=== PATIENT | female | born 1930 | race Hispanic/Latino ===

== ENCOUNTER 2017-07-29 14:39 | Inpatient (IN) | payer OTHER ==
[2017-07-29 22:08] VITALS: BMI 26.0
[2017-07-30 01:42] VITALS: RESP 20
[2017-07-30] MEDS ORDERED: Tuberculin 5 Units/0.1 ml Inj ID ONE (02:55)
[2017-07-30] MEDS: Insulin Regular 100 units/ml SC SCH ×4 (07:42→23:00)
[2017-07-30] MEDS: Lidocaine 5% Patch TD SCH (08:51)
[2017-07-30] MEDS: Enoxaparin 40 mg Syringe SC SCH (08:52)
--- NOTE | 2017-07-30 09:57 | CP.PCM.HP ---
History of Present Illness - History of Present Illness History of Present Illness: Patient seen and examined with attending. This is an 86 y/o female with hx of DM 2 and HTN was admitted for near syncope, found to have UTI and treated with IV ancef. She is doing well. UTI has resolved. Now being admitted to TCU for further rehabilitation. Patient has hx of diabetes, has hyperglycemia. Denies polyuria, polydipsia, polyphagia. No dysuria. Present on Admission - Present on Admission Any Indicators Present on Admission: No Past Patient History - Tetanus Immunizations Tetanus Immunization: Unknown - Past Medical History & Family History Past Medical History?: Yes - Past Social History Smoking Status: Never Smoked - CARDIAC Hx Cardiac Disorders: Yes Hx Hypercholesterolemia: Yes Hx Hypertension: Yes - PULMONARY Hx Respiratory Disorders: Yes Hx Pneumonia: Yes - NEUROLOGICAL Hx Neurological Disorder: No - HEENT Other/Comment: HARD OF HEARING - RENAL Hx Chronic Kidney Disease: No - ENDOCRINE/METABOLIC Hx Diabetes Mellitus Type 2: Yes - HEMATOLOGICAL/ONCOLOGICAL Hx Blood Disorders: No - INTEGUMENTARY Hx Dermatological Problems: No - MUSCULOSKELETAL/RHEUMATOLOGICAL Hx Musculoskeletal Disorders: Yes Hx Falls: Yes Hx Osteoarthritis: Yes - GASTROINTESTINAL Hx Gastrointestinal Disorders: No - GENITOURINARY/GYNECOLOGICAL Hx Genitourinary Disorders: Yes - PSYCHIATRIC Hx Psychophysiologic Disorder: No Hx Substance Use: No - SURGICAL HISTORY Hx Surgeries: Yes Hx Cholecystectomy: Yes ([place]) - ANESTHESIA Hx Anesthesia: Yes Hx Anesthesia Reactions: No Meds Allergies/Adverse Reactions: Allergies Allergy/AdvReac Type Severity Reaction Status Date / Time No Known Allergies Allergy Unverified 04/30/14 20:00 Physical Exam - Constitutional Appears: No Acute Distress - Head Exam Head Exam: ATRAUMATIC, NORMAL INSPECTION, NORMOCEPHALIC - ENT Exam ENT Exam: Mucous Membranes Moist - Respiratory Exam Respiratory Exam: NORMAL BREATHING PATTERN - Cardiovascular Exam Cardiovascular Exam: REGULAR RHYTHM - Extremities Exam Extremities exam: Positive for: normal inspection. Negative for: pedal edema, tenderness - Neurological Exam Neurological exam: Alert, CN II-XII Intact - Psychiatric Exam Psychiatric exam: Normal Affect, Normal Mood - Skin Skin Exam: Normal Color Results - Vital Signs Recent Vital Signs: Last Vital Signs Temp 97.3 F L 07/30/17 08:13 Pulse 75 07/30/17 08:52 Resp 20 07/30/17 08:13 BP 131/60 07/30/17 08:52 Pulse Ox 99 07/30/17 08:13 - Labs Labs: Laboratory Results - last 24 hr 07/30/17 06:35 POC Glucose (mg/dL) 214 H Assessment & Plan - Assessment and Plan (Free Text) Assessment: 86 year old female with hx of DM, HTN admitted to TCU for rehabilitation. #NIDDM #HTN #chronic back pain #dvt ppx -home medications for diabetes resumed -still hyperglycemic, will add glipizide 2.5mg -on insulin sliding scale -HTN is controlled -lovenox case d/w Dr. Oviedo
[2017-07-30] MEDS: Multivitamin With Minerals Tab PO SCH (12:11)
--- NOTE | 2017-07-30 15:34 | CP.PCM.CON ---
History of Present Illness - History of Present Illness History of Present Illness: Dr Brewer PMR consultation on Samantha Ortiz, admitted with syncope and diagnosed with UTI and put on IV ABX stable now and here at [facility] for LC. Review of Systems - Constitutional Constitutional: absent: Chills - EENT Eyes: absent: Change in Vision Ears: Decreased Hearing. absent: Ear Discharge, Ear Pain, Dizziness Nose/Mouth/Throat: absent: Nasal Congestion - Cardiovascular Cardiovascular: absent: Chest Pain - Respiratory Respiratory: absent: Cough, Dyspnea - Gastrointestinal Gastrointestinal: absent: Constipation Past Patient History - Tetanus Immunizations Tetanus Immunization: Unknown - Past Medical History & Family History Past Medical History?: Yes - Past Social History Smoking Status: Never Smoked Alcohol: None Drugs: Denies Home Situation {Lives}: Alone - CARDIAC Hx Cardiac Disorders: Yes Hx Hypercholesterolemia: Yes Hx Hypertension: Yes - PULMONARY Hx Respiratory Disorders: Yes Hx Pneumonia: Yes - NEUROLOGICAL Hx Neurological Disorder: No - HEENT Other/Comment: HARD OF HEARING - RENAL Hx Chronic Kidney Disease: No - ENDOCRINE/METABOLIC Hx Diabetes Mellitus Type 2: Yes - HEMATOLOGICAL/ONCOLOGICAL Hx Blood Disorders: No - INTEGUMENTARY Hx Dermatological Problems: No - MUSCULOSKELETAL/RHEUMATOLOGICAL Hx Musculoskeletal Disorders: Yes Hx Falls: Yes Hx Osteoarthritis: Yes - GASTROINTESTINAL Hx Gastrointestinal Disorders: No - GENITOURINARY/GYNECOLOGICAL Hx Genitourinary Disorders: Yes - PSYCHIATRIC Hx Psychophysiologic Disorder: No Hx Substance Use: No - SURGICAL HISTORY Hx Surgeries: Yes Hx Cholecystectomy: Yes ([place]) - ANESTHESIA Hx Anesthesia: Yes Hx Anesthesia Reactions: No Meds Allergies/Adverse Reactions: Allergies Allergy/AdvReac Type Severity Reaction Status Date / Time No Known Allergies Allergy Unverified 04/30/14 20:00 - Medications Medications: Current Medications Atorvastatin Calcium (Lipitor) 10 mg PO DAILY [facility] Last Admin: 07/30/17 08:52 Dose: 10 mg Enoxaparin Sodium (Lovenox) 40 mg SC DAILY [facility] PRN Reason: Protocol Last Admin: 07/30/17 08:52 Dose: 40 mg Ergocalciferol (Drisdol 50,000 Intl Units Cap) 1 cap PO QWK [facility] Fluticasone Propionate (Flonase) 2 spr OLIVIER DAILY PRN PRN Reason: Allergy symptoms Glipizide (Glucotrol) 2.5 mg PO ACB [facility] Last Admin: 07/30/17 12:10 Dose: 2.5 mg Insulin Human Regular (Humulin R) 0 units SC ACCU-CHECK [facility] PRN Reason: Protocol Last Admin: 07/30/17 07:42 Dose: 2 u Lidocaine (Lidoderm) 1 ea TD DAILY [facility] Last Admin: 07/30/17 08:51 Dose: 1 ea Losartan Potassium (Cozaar) 25 mg PO DAILY [facility] Last Admin: 07/30/17 08:52 Dose: 25 mg Meclizine HCl (Antivert) 25 mg PO TID PRN PRN Reason: Dizziness Multivitamins/Minerals (Therapeutic-M Tab) 1 tab PO DAILY [facility] Last Admin: 07/30/17 12:11 Dose: 1 tab Pioglitazone HCl (Actos) 15 mg PO DAILY [facility] Last Admin: 07/30/17 08:51 Dose: 15 mg Pregabalin (Lyrica) 50 mg PO Q12@0900,2100 [facility] Last Admin: 07/30/17 08:54 Dose: 50 mg Sitagliptin Phosphate (Januvia) 100 mg PO DAILY [facility] Last Admin: 07/30/17 08:51 Dose: 100 mg Sucralfate (Carafate Tab) 1 gm PO TID [facility] Last Admin: 07/30/17 14:04 Dose: 1 gm Tramadol HCl (Ultram) 50 mg PO BID PRN PRN Reason: Pain, severe (8-10) Last Admin: 07/30/17 10:29 Dose: 50 mg Zolpidem Tartrate (Ambien) 5 mg PO [facility] Physical Exam - Constitutional Appears: Non-toxic, No Acute Distress - Head Exam Head Exam: ATRAUMATIC, NORMAL INSPECTION, NORMOCEPHALIC - Eye Exam Eye Exam: EOMI - ENT Exam ENT Exam: Mucous Membranes Moist - Respiratory Exam Respiratory Exam: NORMAL BREATHING PATTERN - Cardiovascular Exam Cardiovascular Exam: REGULAR RHYTHM - GI/Abdominal Exam GI & Abdominal Exam: absent: Distended, Firm - Extremities Exam Extremities exam: Negative for: calf tenderness, pedal edema Results - Vital Signs Recent Vital Signs: Last Vital Signs Temp 97.3 F L 07/30/17 08:13 Pulse 75 07/30/17 08:52 Resp 20 07/30/17 08:13 BP 131/60 07/30/17 08:52 Pulse Ox 99 07/30/17 08:13 - Labs Labs: Laboratory Results - last 24 hr 07/30/17 07/30/17 06:35 10:59 POC Glucose (mg/dL) 214 H 350 H Assessment & Plan - Assessment and Plan (Free Text) Assessment: + deconditioned no pain at this point no sob no diarrhea continue current care PT/OT to help with functional independence and facilitate a safe and appropriate d/c home
[2017-07-30] MEDS: Simethicone 80 mg Chewtab PO PRN (22:15)
[2017-07-31] MEDS: Insulin Regular 100 units/ml SC SCH ×4 (07:11→22:47)
[2017-07-31] MEDS: Ergocalciferol 50,000 Intl Units Cap PO SCH (09:08)
[2017-07-31] MEDS: Multivitamin With Minerals Tab PO SCH (09:08)
[2017-07-31] MEDS: Lidocaine 5% Patch TD SCH (09:10)
[2017-07-31] MEDS: Enoxaparin 40 mg Syringe SC SCH (09:15)
[2017-07-31] MEDS: Simethicone 80 mg Chewtab PO PRN (09:18)
[2017-08-01] MEDS: Insulin Regular 100 units/ml SC SCH ×3 (07:27→16:55)
[2017-08-01] MEDS: Lidocaine 5% Patch TD SCH (08:48)
[2017-08-01] MEDS: Multivitamin With Minerals Tab PO SCH (08:49)
[2017-08-01] MEDS: Ergocalciferol 50,000 Intl Units Cap PO SCH (08:49)
[2017-08-01] MEDS: Enoxaparin 40 mg Syringe SC SCH (08:50)
--- NOTE | 2017-08-01 14:14 | CP.PCM.PN ---
Subjective - Date & Time of Evaluation Date of Evaluation: 07/31/17 Time of Evaluation: 10:20 - Subjective Subjective: Noted to have elevated FBS Started on low dose glipizide and Pioglitazone. Objective - Vital Signs/Intake and Output Vital Signs (last 24 hours): Temp Pulse Resp BP Pulse Ox 97.3 F L 73 20 116/62 98 08/01/17 08:18 08/01/17 08:50 08/01/17 08:18 08/01/17 08:50 08/01/17 08:18 - Medications Medications: Current Medications Atorvastatin Calcium (Lipitor) 10 mg PO DAILY [facility] Last Admin: 08/01/17 08:48 Dose: 10 mg Enoxaparin Sodium (Lovenox) 40 mg SC DAILY [facility] PRN Reason: Protocol Last Admin: 08/01/17 08:50 Dose: 40 mg Ergocalciferol (Drisdol 50,000 Intl Units Cap) 1 cap PO QWK [facility] Last Admin: 08/01/17 08:49 Dose: 1 cap Fluticasone Propionate (Flonase) 2 spr OLIVIER DAILY PRN PRN Reason: Allergy symptoms Glipizide (Glucotrol Xl) 5 mg PO BRK [facility] Insulin Human Regular (Humulin R) 0 units SC ACCU-CHECK [facility] PRN Reason: Protocol Last Admin: 08/01/17 11:41 Dose: 4 u Lidocaine (Lidoderm) 1 ea TD DAILY [facility] Last Admin: 08/01/17 08:48 Dose: 1 ea Losartan Potassium (Cozaar) 25 mg PO DAILY [facility] Last Admin: 08/01/17 08:50 Dose: 25 mg Meclizine HCl (Antivert) 25 mg PO TID PRN PRN Reason: Dizziness Multivitamins/Minerals (Therapeutic-M Tab) 1 tab PO DAILY [facility] Last Admin: 08/01/17 08:49 Dose: 1 tab Pioglitazone HCl (Actos) 30 mg PO DAILY [facility] Pregabalin (Lyrica) 50 mg PO Q12@0900,2100 [facility] Last Admin: 08/01/17 08:49 Dose: 50 mg Simethicone (Mylicon Chew Tab) 80 mg PO TID PRN PRN Reason: Flatulence Last Admin: 07/31/17 09:18 Dose: 80 mg Sitagliptin Phosphate (Januvia) 100 mg PO DAILY [facility] Last Admin: 08/01/17 08:49 Dose: 100 mg Sucralfate (Carafate Tab) 1 gm PO TID [facility] Last Admin: 08/01/17 12:36 Dose: 1 gm Tramadol HCl (Ultram) 50 mg PO BID PRN PRN Reason: Pain, severe (8-10) Last Admin: 07/31/17 22:39 Dose: 50 mg Zolpidem Tartrate (Ambien) 5 mg PO HS [facility] Last Admin: 07/31/17 21:26 Dose: Not Given
--- NOTE | 2017-08-01 14:16 | CP.PCM.PN ---
Subjective - Date & Time of Evaluation Date of Evaluation: 08/01/17 Time of Evaluation: 14:14 - Subjective Subjective: Patient is doing a lot better Still with elevated FBS Objective - Vital Signs/Intake and Output Vital Signs (last 24 hours): Temp Pulse Resp BP Pulse Ox 97.3 F L 73 20 116/62 98 08/01/17 08:18 08/01/17 08:50 08/01/17 08:18 08/01/17 08:50 08/01/17 08:18 - Medications Medications: Current Medications Atorvastatin Calcium (Lipitor) 10 mg PO DAILY [facility] Last Admin: 08/01/17 08:48 Dose: 10 mg Enoxaparin Sodium (Lovenox) 40 mg SC DAILY [facility] PRN Reason: Protocol Last Admin: 08/01/17 08:50 Dose: 40 mg Ergocalciferol (Drisdol 50,000 Intl Units Cap) 1 cap PO QWK [facility] Last Admin: 08/01/17 08:49 Dose: 1 cap Fluticasone Propionate (Flonase) 2 spr OLIVIER DAILY PRN PRN Reason: Allergy symptoms Glipizide (Glucotrol Xl) 5 mg PO BRK [facility] Insulin Human Regular (Humulin R) 0 units SC ACCU-CHECK [facility] PRN Reason: Protocol Last Admin: 08/01/17 11:41 Dose: 4 u Lidocaine (Lidoderm) 1 ea TD DAILY [facility] Last Admin: 08/01/17 08:48 Dose: 1 ea Losartan Potassium (Cozaar) 25 mg PO DAILY [facility] Last Admin: 08/01/17 08:50 Dose: 25 mg Meclizine HCl (Antivert) 25 mg PO TID PRN PRN Reason: Dizziness Multivitamins/Minerals (Therapeutic-M Tab) 1 tab PO DAILY [facility] Last Admin: 08/01/17 08:49 Dose: 1 tab Pioglitazone HCl (Actos) 30 mg PO DAILY [facility] Pregabalin (Lyrica) 50 mg PO Q12@0900,2100 [facility] Last Admin: 08/01/17 08:49 Dose: 50 mg Simethicone (Mylicon Chew Tab) 80 mg PO TID PRN PRN Reason: Flatulence Last Admin: 07/31/17 09:18 Dose: 80 mg Sitagliptin Phosphate (Januvia) 100 mg PO DAILY [facility] Last Admin: 08/01/17 08:49 Dose: 100 mg Sucralfate (Carafate Tab) 1 gm PO TID [facility] Last Admin: 08/01/17 12:36 Dose: 1 gm Tramadol HCl (Ultram) 50 mg PO BID PRN PRN Reason: Pain, severe (8-10) Last Admin: 07/31/17 22:39 Dose: 50 mg Zolpidem Tartrate (Ambien) 5 mg PO HS [facility] Last Admin: 07/31/17 21:26 Dose: Not Given
[2017-08-01] MEDS: GlipiZIDE 5 mg SR Tab PO SCH (16:53)
[2017-08-01] MEDS: Pantoprazole 40 mg EC Tab PO SCH (16:58)
[2017-08-02] MEDS: Insulin Regular 100 units/ml SC SCH ×5 (03:39→22:13)
[2017-08-02] MEDS: Enoxaparin 40 mg Syringe SC SCH (08:52)
[2017-08-02] MEDS: Pantoprazole 40 mg EC Tab PO SCH (08:53)
[2017-08-02] MEDS: Ergocalciferol 50,000 Intl Units Cap PO SCH (08:53)
[2017-08-02] MEDS: Multivitamin With Minerals Tab PO SCH (08:53)
[2017-08-02] MEDS: GlipiZIDE 5 mg SR Tab PO SCH (08:53)
[2017-08-02] MEDS: Lidocaine 5% Patch TD SCH (08:54)
[2017-08-02] MEDS ORDERED: GlipiZIDE 5 mg SR Tab PO SCH (17:00)
[2017-08-02] MEDS: Insulin Detemir 100 Units/ml Inj SC SCH (22:03)
[2017-08-03] MEDS: Insulin Regular 100 units/ml SC SCH ×4 (06:36→22:02)
[2017-08-03] MEDS: Lidocaine 5% Patch TD SCH (08:28)
[2017-08-03] MEDS: Pantoprazole 40 mg EC Tab PO SCH (08:29)
[2017-08-03] MEDS: Multivitamin With Minerals Tab PO SCH (08:29)
[2017-08-03] MEDS: GlipiZIDE 5 mg SR Tab PO SCH (08:29)
--- NOTE | 2017-08-03 10:11 | CP.PCM.PN ---
Subjective - Date & Time of Evaluation Date of Evaluation: 08/02/17 Time of Evaluation: 10:00 - Subjective Subjective: Patient continues to complain about pain in the left upper quadrant Has no chest pain or SOB Has normal intake and b,m Participates well with therapy. Objective - Vital Signs/Intake and Output Vital Signs (last 24 hours): Temp Pulse Resp BP Pulse Ox 97.3 F L 68 20 135/55 L 100 08/03/17 08:23 08/03/17 08:28 08/03/17 08:23 08/03/17 08:28 08/03/17 08:23 - Medications Medications: Current Medications Atorvastatin Calcium (Lipitor) 10 mg PO HS [facility] Last Admin: 08/02/17 22:12 Dose: 10 mg Ergocalciferol (Drisdol 50,000 Intl Units Cap) 1 cap PO QWK [facility] Last Admin: 08/02/17 08:53 Dose: 1 cap Fluticasone Propionate (Flonase) 2 spr OLIVIER DAILY PRN PRN Reason: Allergy symptoms Glipizide (Glucotrol Xl) 5 mg PO BRK [facility] Last Admin: 08/03/17 08:29 Dose: 5 mg Insulin Detemir (Levemir) 10 units SC HS [facility] Last Admin: 08/02/17 22:03 Dose: 10 units Insulin Human Regular (Humulin R) 0 units SC ACCU-CHECK [facility] PRN Reason: Protocol Last Admin: 08/03/17 06:36 Dose: Not Given Lidocaine (Lidoderm) 1 ea TD DAILY [facility] Last Admin: 08/03/17 08:28 Dose: 1 ea Losartan Potassium (Cozaar) 25 mg PO DAILY [facility] Last Admin: 08/03/17 08:28 Dose: 25 mg Meclizine HCl (Antivert) 25 mg PO TID PRN PRN Reason: Dizziness Multivitamins/Minerals (Therapeutic-M Tab) 1 tab PO DAILY [facility] Last Admin: 08/03/17 08:29 Dose: 1 tab Pantoprazole Sodium (Protonix Ec Tab) 40 mg PO DAILY [facility] Last Admin: 08/03/17 08:29 Dose: 40 mg Pioglitazone HCl (Actos) 30 mg PO DAILY [facility] Last Admin: 08/03/17 08:28 Dose: 30 mg Simethicone (Mylicon Chew Tab) 80 mg PO TID PRN PRN Reason: Flatulence Last Admin: 07/31/17 09:18 Dose: 80 mg Sitagliptin Phosphate (Januvia) 100 mg PO DAILY [facility] Last Admin: 08/03/17 08:29 Dose: 100 mg Sucralfate (Carafate Tab) 1 gm PO TID [facility] Last Admin: 08/03/17 08:28 Dose: 1 gm Tramadol HCl (Ultram) 50 mg PO Q4 PRN PRN Reason: Pain, moderate (4-7) Zolpidem Tartrate (Ambien) 5 mg PO HS [facility] Last Admin: 08/02/17 22:11 Dose: 5 mg - Head Exam Head Exam: NORMAL INSPECTION - Eye Exam Eye Exam: Normal appearance - ENT Exam ENT Exam: Mucous Membranes Moist - Cardiovascular Exam Cardiovascular Exam: REGULAR RHYTHM - GI/Abdominal Exam GI & Abdominal Exam: Normal Bowel Sounds - Neurological Exam Neurological Exam: Awake, Oriented x3 Assessment and Plan (1) Left upper quadrant abdominal pain of unknown etiology Status: Acute (2) Episode of syncope Status: Acute (3) UTI (urinary tract infection) Status: Acute (4) Uncontrolled diabetes mellitus type 2 without complications Status: Acute (5) Osteoarthritis of both knees Status: Chronic - Assessment and Plan (Free Text) Plan: contmeds cont tx cont PT
[2017-08-03] MEDS: Insulin Detemir 100 Units/ml Inj SC SCH (21:32)
[2017-08-04] MEDS: Insulin Regular 100 units/ml SC SCH ×4 (06:25→22:06)
[2017-08-04] MEDS: Lidocaine 5% Patch TD SCH (08:37)
[2017-08-04] MEDS: GlipiZIDE 5 mg SR Tab PO SCH (08:37)
[2017-08-04] MEDS: Pantoprazole 40 mg EC Tab PO SCH (08:37)
[2017-08-04] MEDS: Multivitamin With Minerals Tab PO SCH (08:37)
[2017-08-04] MEDS: Insulin Detemir 100 Units/ml Inj SC SCH (21:40)
[2017-08-05] MEDS: Insulin Regular 100 units/ml SC SCH ×4 (06:46→22:09)
[2017-08-05] MEDS: GlipiZIDE 5 mg SR Tab PO SCH (08:58)
[2017-08-05] MEDS: Lidocaine 5% Patch TD SCH (08:59)
[2017-08-05] MEDS: Multivitamin With Minerals Tab PO SCH (08:59)
[2017-08-05] MEDS: Pantoprazole 40 mg EC Tab PO SCH (09:00)
[2017-08-05 16:39] VITALS: TEMP 97.5
[2017-08-05] MEDS: Insulin Detemir 100 Units/ml Inj SC SCH (21:29)
[2017-08-06] MEDS: Insulin Regular 100 units/ml SC SCH (07:06)
[2017-08-06 08:09] VITALS: BP 127/57; PULSE 72; O2SAT 95
[2017-08-06] MEDS: Lidocaine 5% Patch TD SCH (08:57)
[2017-08-06] MEDS: Multivitamin With Minerals Tab PO SCH (08:57)
[2017-08-06] MEDS: GlipiZIDE 5 mg SR Tab PO SCH (08:57)
[2017-08-06] MEDS: Pantoprazole 40 mg EC Tab PO SCH (08:58)
--- NOTE | 2017-08-06 12:47 | CP.PCM.DIS ---
Provider - Provider Date of Admission: 07/29/17 22:09 Attending physician: Krunal Oviedo MD Hospital Course - Lab Results Lab Results: Most Recent Lab Values POC Glucose (mg/dL) 148 mg/dL (65-110) H 08/06/17 07:04 Discharge Exam - Head Exam Head Exam: NORMAL INSPECTION Discharge Plan - Follow Up Plan Condition: GOOD Disposition: HOME/ ROUTINE Instructions: Urinary Tract Infection in Women (DC), Syncope (DC), Fall Prevention (GEN) Referrals: Krunal Oviedo MD [Staff Provider] -
== END 2017-08-06 11:00 | disposition home or self-care (01) | DRG 639 ==
LOC: H.TCU 22:09
PROVIDERS: ADMIT Family Medicine; ATTEND Family Medicine
PROC: F08Z4FZ Home Management Treatment using Assistive, Adaptive, Supportive or Protective Equipment (ICD-10-PCS; principal; 2017-07-30)
PROC: F07M6FZ Therapeutic Exercise Treatment of Musculoskeletal System - Whole Body using Assistive, Adaptive, Supportive or Protective Equipment (ICD-10-PCS; 2017-07-30)
DX: E11.65 Type 2 diabetes mellitus with hyperglycemia (principal); I10 Essential (primary) hypertension; E78.00 Pure hypercholesterolemia, unspecified; G89.29 Other chronic pain; M54.9 Dorsalgia, unspecified; H91.90 Unspecified hearing loss, unspecified ear; M17.0 Bilateral primary osteoarthritis of knee; Z79.84 Long term (current) use of oral hypoglycemic drugs; Z87.01 Personal history of pneumonia (recurrent); Z90.49 Acquired absence of other specified parts of digestive tract; M19.90 Unspecified osteoarthritis, unspecified site; R10.12 Left upper quadrant pain; R55 Syncope and collapse

== ENCOUNTER 2018-02-11 22:14 | Emergency (ER) | payer MEDICARE, OTHER ==
[2018-02-11 22:14] VITALS: BMI 26.0
[2018-02-11 22:17] VITALS: O2SAT 98
[2018-02-11 22:23] VITALS: BP 178/86; PULSE 83; RESP 18; TEMP 98
[2018-02-11] MEDS ORDERED: Sodium Chloride 0.9% 1,000 ML IV STA ×2 (22:33→22:35)
--- NOTE | 2018-02-11 23:01 | ED PDOC ---
HPI: Back Time Seen by Provider: 02/11/18 22:26 Chief Complaint (Nursing): Back Pain History Per: Patient History/Exam Limitations: no limitations Onset/Duration Of Symptoms: Other (x since this morning) Current Symptoms Are (Timing): Still Present Additional Complaint(s): 87-year-old female, with a past medical history of diabetes and hypertension, presents to ED complaining since this morning, she has had right- sided flank pain consistent with previous UTIs she had. (+) chills, (-) fever, ( -) nausea, (-) vomitin, (-) diarrhea. PMD: [place] Past Medical History Reviewed: Historical Data, Nursing Documentation, Vital Signs Vital Signs: Last Vital Signs Temp 98 F 02/11/18 22:20 Pulse 83 02/11/18 22:20 Resp 18 02/11/18 22:20 BP 178/86 H 02/11/18 22:20 Pulse Ox 98 02/11/18 22:20 - Medical History PMH: Diabetes, HTN, Hypercholesterolemia, Pneumonia Denies: Chronic Kidney Disease - Surgical History Surgical History: Cholecystectomy (Lap [place]) - Family History Family History: States: Unknown Family Hx - Social History Current smoker - smoking cessation education provided: No Alcohol: None Drugs: Denies - Home Medications Home Medications: Ambulatory Orders Medication Instructions Recorded Atorvastatin [Lipitor] 10 mg PO DAILY 07/23/17 Mv,Min10/Folic Acid/D3/Ala/Lut 1 tab PO DAILY 07/23/17 [Strovite One Caplet] SITagliptin [Januvia] 100 mg PO DAILY 07/23/17 Sucralfate [Carafate Tab] 1 gm PO TID 07/23/17 Zolpidem [Ambien] 5 mg PO HS 07/23/17 traMADol [Ultram] 50 mg PO BID PRN 07/23/17 Glipizide [Glipizide ER] 5 mg PO DAILY 08/06/17 Insulin Detemir [Levemir] 10 unit SC HS 08/06/17 Lidocaine 5% [Lidoderm] 1 patch TP DAILY 08/06/17 Losartan [Cozaar] 25 mg PO DAILY 08/06/17 Pantoprazole [Protonix] 40 mg PO DAILY 08/06/17 Pioglitazone [Actos] 30 mg PO DAILY 11/17/17 - Allergies Allergies/Adverse Reactions: Allergies Allergy/AdvReac Type Severity Reaction Status Date / Time No Known Allergies Allergy Verified 02/11/18 22:20 Review of Systems ROS Statement: Except As Marked, All Systems Reviewed And Found Negative Constitutional: Positive for: Chills. Negative for: Fever Gastrointestinal: Positive for: Other (right flank pain). Negative for: Nausea , Vomiting, Diarrhea Physical Exam - Reviewed Nursing Documentation Reviewed: Yes Vital Signs Reviewed: Yes - Physical Exam Appears: Positive for: Well Head Exam: Positive for: ATRAUMATIC, NORMAL INSPECTION, NORMOCEPHALIC Skin: Positive for: Normal Color, Warm, Dry Eye Exam: Positive for: Normal appearance, EOMI, PERRL ENT: Positive for: Normal ENT Inspection Neck: Positive for: Normal Cardiovascular/Chest: Positive for: Regular Rate, Rhythm Respiratory: Positive for: Normal Breath Sounds Gastrointestinal/Abdominal: Positive for: Normal Exam Back: Positive for: R CVA Tenderness Extremity: Positive for: Normal ROM. Negative for: Deformity Neurologic/Psych: Positive for: Alert, Oriented (x 3) - Laboratory Results Result Diagrams: 02/11/18 23:30 02/11/18 23:30 - ECG O2 Sat by Pulse Oximetry: 98 (RA) Pulse Ox Interpretation: Normal Medical Decision Making Medical Decision Making: Time: 22:33 Impression(s): 87-year-old female with right-sided flank pain. Plan: - EKG - CMP - Lactic Acid, Plasma - ED Urine Dipstick - CBC (with differentials) - Sodium Chloride 0.9% 1,000 ml IV 1,000 mls/hr - Sodium Chloride 0.9% 1,000 ml IV 125 mls/hr - Toraol 15 mg IVP STAT - Blood Culture - Urine Culture - Accuheck - UA 1:02 Labs were reviewed and no clinically significant abnormalities were found. Upon reevaluation, patient reports improvement of symptoms. Patient advised to follow up with PMD. Scribe Attestation: Documented by Myron Melendez, acting as a scribe for Chris Langston MD. Provider Scribe Attestation: All medical record entries made by the Scribe were at my direction and personally dictated by me. I have reviewed the chart and agree that the record accurately reflects my personal performance of the history, physical exam, medical decision making, and the department course for this patient. I have also personally directed, reviewed, and agree with the discharge instructions and disposition. Disposition - Clinical Impression Clinical Impression: Back pain, Flank pain - Patient ED Disposition Is Patient to be Admitted: No - Disposition Disposition: Routine/Home Disposition Time: 01:02 Condition: STABLE Instructions: Flank Pain Forms: [facility] (Jamaican) Print Language: JAMAICAN
[2018-02-11 23:53] LABS: URINE BILIRUBIN NEGATIVE (NEGATIVE); URINE BLOOD NEGATIVE (NEGATIVE); URINE CLARITY CLEAR (Clear); URINE COLOR STRAW (YELLOW); URINE GLUCOSE (UA) NEG (Normal); URINE LEUKOCYTE ESTERASE NEG Leu/uL (Negative); URINE PROTEIN NEGATIVE (NEGATIVE); URINE UROBILINOGEN 0.2-1.0 mg/dL (0.2-1.0)
[2018-02-11 23:54] LABS: BASO % 0.4 % (0.0-2.0); EOS # 0.1 K/uL (0.0-0.7); EOS % 1.6 % (0.0-4.0); HEMOGLOBIN 11.9 g/dL (12.0-16.0); LYMPH # 2.7 K/uL (1.0-4.3); LYMPH % 40.3 % (20.0-40.0); MEAN CELL VOLUME 96.6 fl (81.0-99.0); MEAN CORPUSCULAR HEMOGLOBIN 32.3 pg (27.0-31.0); MEAN CORPUSCULAR HGB CONC 33.5 g/dL (33.0-37.0); MEAN PLATELET VOLUME 10.7 fl (7.2-11.7); MONO # 0.4 K/uL (0.0-0.8); MONO % 6.1 % (0.0-10.0); NEUT # 3.5 K/uL (1.8-7.0); NEUT % 51.6 % (50.0-75.0); NRBC % 0.1 % (0.0-0.0); RBC 3.67 Mil/uL (3.80-5.20); RED CELL DISTRIBUTION WIDTH 13.5 % (11.5-14.5); WHITE BLOOD COUNT 6.7 K/uL (4.8-10.8)
[2018-02-12] LABS: ALB/GLOB RATIO 1.1 (1.0-2.1); ALBUMIN 4.1 g/dL (3.5-5.0); ALT/SGPT 39 U/L (9-52); AST/SGOT 32 U/L (14-36); BLOOD UREA NITROGEN 40 mg/dl (7-17); CALCIUM 10.1 mg/dL (8.4-10.2); GFR AFRICAN-AMERICAN > 60; GFR NON-AFRICAN AMERICAN 52
--- NOTE | 2018-02-12 10:50 | CARD ---
APPROVED REPORT EKG Measurement Heart [id number] <Conclusion> Normal sinus rhythm Low voltage QRS Borderline ECG
== END 2018-02-12 03:01 | disposition home or self-care (01) ==
LOC: H.ER 22:14
DX: M54.9 Dorsalgia, unspecified (principal); R10.9 Unspecified abdominal pain; E11.9 Type 2 diabetes mellitus without complications; E78.00 Pure hypercholesterolemia, unspecified; I10 Essential (primary) hypertension; Z79.4 Long term (current) use of insulin; Z87.440 Personal history of urinary (tract) infections
CPT/HCPCS: 80053; 81003; 83605; 85025; 87040; 87086; 93005; 96374; 99283; J1885; J7040

== ENCOUNTER 2018-02-23 13:09 | Emergency (ER) | payer MEDICARE, OTHER ==
[2018-02-23 13:09] VITALS: BMI 26.0
[2018-02-23] MEDS ORDERED: Sodium Chloride 0.9% 500 ML IV STA (14:18)
[2018-02-23] MEDS ORDERED: Famotidine 20mg/50ml Premix IVPB STA (14:18)
--- NOTE | 2018-02-23 14:25 | ED PDOC ---
Arrival/HPI - General Chief Complaint: Hip Pain Time Seen by Provider: 02/23/18 14:02 Historian: Patient - History of Present Illness Narrative History of Present Illness (Text): 87 year old female with a history of diabetes and hypertension presents to the ED with right hip pain. Patient reports she fell 3 months ago and landed on her left side. She feels as though the pain is moving. Before fall, patient states there was minor pain in left hip. Now it has worsened, even more so in the morning, and is stronger on her right side. She also admits to mild dysuria that has been constant for the last six months. Patient was seen here two weeks ago for the same symptoms. Pain is worse now, prompting ED visit. She took Tramadol this morning with minimal relief. Denies leg pain, numbness, weakness, chest pain and shortness of breath. No abd pain, headaches, dizziness, weakness , chest pain, dyspnea. PMD: Katelyn Alford 02/23/18 14:19 02/23/18 16:09 Time/Duration: > month (x 3) Symptom Course: Worsening Past Medical History - Provider Review Nursing Documentation Reviewed: Yes - Tetanus Immunization Tetanus Immunization: Unknown - Cardiac Hx Hypertension: Yes - Pulmonary Hx Pneumonia: Yes - Neurological Hx Neurological Disorder: No - HEENT Other/Comment: HARD OF HEARING - Renal Hx Renal Disorder: No - Endocrine/Metabolic Hx Diabetes Mellitus Type 2: Yes - Hematological/Oncological Hx Blood Disorders: No - Integumentary Hx Dermatological Disorder: No - Musculoskeletal/Rheumatological Hx Musculoskeletal Disorders: Yes Hx Falls: Yes Hx Osteoarthritis: Yes - Gastrointestinal Hx Gastrointestinal Disorders: No - Genitourinary/Gynecological Hx Genitourinary Disorders: Yes - Psychiatric Hx Psychophysiologic Disorder: No Hx Substance Use: No - Surgical History Hx Cholecystectomy: Yes ([place]ap [place]) - Anesthesia Hx Anesthesia: Yes Hx Anesthesia Reactions: No Family/Social History - Physician Review Nursing Documentation Reviewed: Yes Family/Social History: Unknown Family HX Smoking Status: Never Smoked Hx Alcohol Use: No Hx Substance Use: No Allergies/Home Meds Allergies/Adverse Reactions: Allergies No Known Allergies Allergy (Verified 02/23/18 13:12) Home Medications: Home Meds Medication Instructions Recorded Confirmed Atorvastatin [Lipitor] 10 mg PO DAILY 07/23/17 07/29/17 Mv,Min10/Folic Acid/D3/Ala/Lut 1 tab PO DAILY 07/23/17 07/30/17 [Strovite One Caplet] SITagliptin [Januvia] 100 mg PO DAILY 07/23/17 07/29/17 Sucralfate [Carafate Tab] 1 gm PO TID 07/23/17 07/30/17 Zolpidem [Ambien] 5 mg PO HS 07/23/17 07/29/17 traMADol [Ultram] 50 mg PO BID PRN 07/23/17 07/29/17 Glipizide [Glipizide ER] 5 mg PO DAILY 08/06/17 08/06/17 Insulin Detemir [Levemir] 10 unit SC HS 08/06/17 08/06/17 Lidocaine 5% [Lidoderm] 1 patch TP DAILY 08/06/17 08/06/17 Losartan [Cozaar] 25 mg PO DAILY 08/06/17 08/06/17 Pantoprazole [Protonix] 40 mg PO DAILY 08/06/17 08/06/17 Pioglitazone [Actos] 30 mg PO DAILY 08/06/17 08/06/17 Review of Systems - Physician Review All systems were reviewed & negative as marked: Yes - Review of Systems Genitourinary Female: Dysuria Musculoskeletal: Other (hip pain) Physical Exam Vital Signs Reviewed: Yes Vital Signs Temp Pulse Resp BP Pulse Ox 02/23/18 13:12 97.1 F L 104 H 16 97/47 L 96 Temperature: Afebrile Pulse: Regular Respiratory Rate: Normal Appearance: Positive for: Non-Toxic, Comfortable Mental Status: Positive for: Alert and Oriented X 3 - Systems Exam Head: Present: Atraumatic, Normocephalic Pupils: Present: PERRL Extroacular Muscles: Present: EOMI Conjunctiva: Present: Normal Ears: Present: Normal Neck: Present: Normal Range of Motion Respiratory/Chest: Present: Clear to Auscultation. No: Respiratory Distress Cardiovascular: Present: Regular Rate and Rhythm Abdomen: Present: Normal Bowel Sounds. No: Tenderness Back: Present: Normal Inspection. No: CVA Tenderness, Midline Tenderness, Pain with Leg Raise Upper Extremity: Present: Normal Inspection. No: Deformity Lower Extremity: Present: Normal ROM. No: Normal Inspection (mild tender b/l hips with no echymosis or erythema) Skin: Present: Warm, Dry, Normal Color. No: Rashes Psychiatric: Present: Alert, Oriented x 3, Normal Insight, Normal Concentration Medical Decision Making ED Course and Treatment: 02/23/18 16:12 Stable. AAOx3. Pain free. Ambulated with no issues. Bp and vitals maintained well. Pt. to fu with pcp. - Lab Interpretations Narrative Lab Interpretation (Text): 02/23/18 16:11 urine wbc; bun 28. Lab Results: 02/23/18 14:59 02/23/18 14:59 Lab Results 02/23/18 14:59: Urine Color Yellow, Urine Clarity Clear, Urine pH 6.0, Ur Specific [place] 1.010, Urine Protein Negative, Urine Glucose (UA) Neg, Urine Ketones Negative, Urine Blood Negative, Urine Nitrate Negative, Urine Bilirubin Negative, Urine Urobilinogen 0.2-1.0, Ur Leukocyte Esterase Neg, Urine RBC (Auto ) 1, Urine Microscopic WBC 2 02/23/18 14:59: Sodium 142, Potassium 4.2, Chloride 102, Carbon Dioxide 29, Anion Gap 15, BUN 28 H, Creatinine 0.9, Est GFR ( Amer) > 60, Est GFR ( Non-Af Amer) 59, Random Glucose 155 H, Calcium 10.0, Total Bilirubin 0.7, AST 30 , ALT 27, Alkaline Phosphatase 60, Total Protein 7.5, Albumin 4.0, Globulin 3.5 , Albumin/Globulin Ratio 1.1 02/23/18 14:59: WBC 6.4, RBC 3.67 L, Hgb 12.1, Hct 35.5, MCV 96.6, MCH 32.8 H, MCHC 34.0, RDW 13.1, Plt Count 117 L, MPV 10.2, Neut % (Auto) 49.4 L, Lymph % ( Auto) 42.0 H, [place] % (Auto) 6.6, Eos % (Auto) 1.7, Baso % (Auto) 0.3, Neut # ( Auto) 3.1, Lymph # (Auto) 2.7, [place] # (Auto) 0.4, Eos # (Auto) 0.1, Baso # (Auto ) 0.0 I have reviewed the lab results: Yes - RAD Interpretation Radiology Orders: 02/23/18 14:17 Hip Bilateral [HIP MIN 5V W/ PELVIS RONI] [RAD] Stat no acute fx. Quality Manager: Radiologist - Medication Orders Current Medication Orders: Discontinued Medications Famotidine (Pepcid 20mg/50ml Premix) 20 mg IVPB STAT STA Stop: 02/23/18 14:19 Last Admin: 02/23/18 15:18 Dose: 20 mg eMAR Start Stop Document 02/23/18 15:18 (Rec: 02/23/18 15:18 [id number][facility] Intravenous Solution Start Date 02/23/18 Start Time 15:18 End Date 02/23/18 End time 15:48 Total Infusion Time 30 Sodium Chloride (Sodium Chloride 0.9%) 500 mls @ 500 mls/hr IV .Q1H STA Stop: 02/23/18 15:17 Last Admin: 02/23/18 15:19 Dose: 500 mls/hr eMAR Start Stop Document 02/23/18 15:19 (Rec: 02/23/18 15:19 [id number]) Intravenous Solution Start Date 02/23/18 Start Time 15:19 End Date 02/23/18 End time 16:19 Total Infusion Time 60 Ketorolac Tromethamine (Toradol) 15 mg IVP STAT STA Stop: 02/23/18 14:19 Last Admin: 02/23/18 15:18 Dose: 15 mg MAR Pain Assessment Document 02/23/18 15:18 (Rec: 02/23/18 15:18 [id number]) Pain Reassessment Is this a pain reassessment? No Presence of Pain Presence of Pain Yes Pain Scale Used Pain Scale Used Numeric Location Pain Location Body Site Back Hip Description Description Constant Intensity of Pain at present 6 Aggravating Factors ADL's Changing Position IVP Administration Document 02/23/18 15:18 (Rec: 02/23/18 15:18 [id number]) Charges for Administration # of IVP Administrations 1 Time: 14:17 Initial Plan: --CMP --CBC --Urine dip --NS IV 500 mls/hr --Famotidine 20 mg IVPB --Toradol 15 mg IVP --urine cx --B/l hip x-ray --UA Disposition/Present on Arrival - Present on Arrival Any Indicators Present on Arrival: No - Disposition Have Diagnosis and Disposition been Completed?: Yes Diagnosis: Hip pain, UTI (urinary tract infection) Disposition: HOME/ ROUTINE Disposition Time: 16:01 Condition: STABLE Discharge Instructions (ExitCare): Urinary Tract Infection, Adult (DC), Hip Pain (DC) Additional Instructions: Return if not better in 3 days. Prescriptions: Ibuprofen [Motrin] 600 mg PO TID 7 Days tab Nitrofurantoin Macrocrystals [Macrobid] 100 mg PO BID #10 cap Referrals: [facility] [Outside] - 02/25/18
[2018-02-23] MEDS ORDERED: Famotidine 20mg/50ml 20 MG/50 ML BAG IVPB ONE (15:18)
--- NOTE | 2018-02-23 15:21 | RAD ---
PROCEDURE: HISTORY: pain COMPARISON: 07/23/2017 TECHNIQUE: Pelvis an AP frog-leg views obtained FINDINGS: Generalized osteopenia L4-5 facet hypertrophic arthrosis with surrounding hyper trophic osseous productive change. Bilateral superolateral hip joint space narrowing with superolateral acetabular spurring. No fracture or lytic lesions here. Bilateral calcifications over the soft tissues in each iliac bone probably relate to bilateral injection granulomas these appear similar. Atherosclerotic vascular calcifications present. . IMPRESSION: No fracture or dislocation. Bilateral arthrosis as above
[2018-02-23 15:25] LABS: URINE BILIRUBIN NEGATIVE (NEGATIVE); URINE BLOOD NEGATIVE (NEGATIVE); URINE CLARITY CLEAR (Clear); URINE COLOR YELLOW (YELLOW); URINE GLUCOSE (UA) NEG (Normal); URINE LEUKOCYTE ESTERASE NEG Leu/uL (Negative); URINE PROTEIN NEGATIVE (NEGATIVE); URINE UROBILINOGEN 0.2-1.0 mg/dL (0.2-1.0)
[2018-02-23 15:26] LABS: BASO % 0.3 % (0.0-2.0); EOS # 0.1 K/uL (0.0-0.7); EOS % 1.7 % (0.0-4.0); HEMOGLOBIN 12.1 g/dL (12.0-16.0); LYMPH # 2.7 K/uL (1.0-4.3); MEAN CELL VOLUME 96.6 fl (81.0-99.0); MEAN CORPUSCULAR HEMOGLOBIN 32.8 pg (27.0-31.0); MEAN PLATELET VOLUME 10.2 fl (7.2-11.7); MONO # 0.4 K/uL (0.0-0.8); MONO % 6.6 % (0.0-10.0); NEUT # 3.1 K/uL (1.8-7.0); NEUT % 49.4 % (50.0-75.0); NRBC % 0.1 % (0.0-0.0); RBC 3.67 Mil/uL (3.80-5.20); RED CELL DISTRIBUTION WIDTH 13.1 % (11.5-14.5); WHITE BLOOD COUNT 6.4 K/uL (4.8-10.8)
[2018-02-23 15:32] LABS: ALB/GLOB RATIO 1.1 (1.0-2.1); ALT/SGPT 27 U/L (9-52); AST/SGOT 30 U/L (14-36); BLOOD UREA NITROGEN 28 mg/dl (7-17); GFR AFRICAN-AMERICAN > 60; GFR NON-AFRICAN AMERICAN 59
[2018-02-23 16:41] VITALS: BP 109/55; PULSE 85; RESP 20; TEMP 98; O2SAT 99
== END 2018-02-23 17:20 | disposition home or self-care (01) ==
LOC: H.ER 13:09
DX: M25.551 Pain in right hip (principal); N39.0 Urinary tract infection, site not specified; E11.9 Type 2 diabetes mellitus without complications; I10 Essential (primary) hypertension; Z79.4 Long term (current) use of insulin; M19.90 Unspecified osteoarthritis, unspecified site
CPT/HCPCS: 73523; 80053; 81003; 85025; 87086; 96365; 96375; 99283; J1885; J7040

== ENCOUNTER 2018-03-18 16:46 | Emergency (ER) | payer MEDICARE, OTHER ==
[2018-03-18 16:46] VITALS: BMI 26.0
[2018-03-18 16:58] VITALS: TEMP 97.9
--- NOTE | 2018-03-18 17:32 | ED PDOC ---
HPI: Trauma/Fall - HPI Time Seen by Provider: 03/18/18 17:02 Chief Complaint (Nursing): Lower Extremity Problem/Injury Chief Complaint (Provider): fall injuries History Per: Patient History/Exam Limitations: no limitations Onset/Duration Of Symptoms: Hrs (today) Injury Occurred (Timing): Just Before Arrival Location Of Injury: Right: Hip, Leg Pain Scale Rating Of: 5 Additional Complaint(s): Samantha Ortiz is an 87 year old female, with a past medical history of diabetes and hypertension, who was brought to the emergency department via EMS for evaluation of right leg and hip pain s/p fall onset prior to arrival. Patient reports she accidentally fell on her right side while attempting to move to a chair. Patient also reports feeling bloated after eating and states she will occasionally vomit the contents. She denies any head injuries, LOC, nausea, dizziness, headache, weakness, numbness or tingling. No further medical complaints. PMD: Katelyn Alford Past Medical History Reviewed: Historical Data, Nursing Documentation, Vital Signs Vital Signs: Last Vital Signs Temp 97.9 F 03/18/18 16:54 Pulse 86 03/18/18 16:54 Resp 16 03/18/18 16:54 BP 126/82 03/18/18 16:54 Pulse Ox 98 03/18/18 19:45 - Medical History PMH: Diabetes, HTN, Hypercholesterolemia, Pneumonia Denies: Chronic Kidney Disease - Surgical History Surgical History: Cholecystectomy ([place]ap [place]) - Family History Family History: States: Unknown Family Hx - Social History Current smoker - smoking cessation education provided: No Alcohol: None Drugs: Denies - Home Medications Home Medications: Ambulatory Orders Medication Instructions Recorded Atorvastatin [Lipitor] 10 mg PO DAILY 07/23/17 Mv,Min10/Folic Acid/D3/Ala/Lut 1 tab PO DAILY 07/23/17 [Strovite One Caplet] SITagliptin [Januvia] 100 mg PO DAILY 07/23/17 Sucralfate [Carafate Tab] 1 gm PO TID 07/23/17 Zolpidem [Ambien] 5 mg PO HS 07/23/17 traMADol [Ultram] 50 mg PO BID PRN 07/23/17 Glipizide [Glipizide ER] 5 mg PO DAILY 08/06/17 Insulin Detemir [Levemir] 10 unit SC HS 08/06/17 Lidocaine 5% [Lidoderm] 1 patch TP DAILY 08/06/17 Losartan [Cozaar] 25 mg PO DAILY 08/06/17 Pantoprazole [Protonix] 40 mg PO DAILY 08/06/17 Pioglitazone [Actos] 30 mg PO DAILY 08/06/17 Ibuprofen [Motrin] 600 mg PO TID 7 Days tab 02/23/18 Nitrofurantoin Macrocrystals 100 mg PO BID #10 cap 02/23/18 [Macrobid] Acetaminophen 2 tab PO Q6 PRN #24 tablet 03/18/18 Cephalexin [Keflex] 500 mg PO TID #15 capsule 03/18/18 - Allergies Allergies/Adverse Reactions: Allergies Allergy/AdvReac Type Severity Reaction Status Date / Time No Known Allergies Allergy Verified 02/23/18 13:12 Review of Systems ROS Statement: Except As Marked, All Systems Reviewed And Found Negative Constitutional: Negative for: Fever, Chills Gastrointestinal: Negative for: Nausea Musculoskeletal: Positive for: Leg Pain (right), Other (right sided hip pain) Neurological: Negative for: Weakness, Numbness (tingling), Headache, Dizziness Physical Exam - Reviewed Nursing Documentation Reviewed: Yes Vital Signs Reviewed: Yes - Physical Exam Appears: Positive for: Non-toxic Head Exam: Positive for: ATRAUMATIC, NORMOCEPHALIC Skin: Positive for: Normal Color, Warm, Dry Eye Exam: Positive for: Normal appearance, EOMI, PERRL Neck: Positive for: Painless ROM, Supple Cardiovascular/Chest: Positive for: Regular Rate, Rhythm. Negative for: Chest Non Tender (Right chest wall tenderness), Murmur Respiratory: Positive for: Normal Breath Sounds. Negative for: Respiratory Distress Gastrointestinal/Abdominal: Positive for: Normal Exam, Soft. Negative for: Tenderness, Guarding, Rebound Extremity: Positive for: Normal ROM (upper and lower extremities), Tenderness ( right anterior leg along tibial spine. Nontender foot, knees, and ankle). Negative for: Deformity, Swelling Neurologic/Psych: Positive for: Alert, Oriented. Negative for: Motor/Sensory Deficits - Laboratory Results Result Diagrams: 03/18/18 18:39 03/18/18 18:39 - ECG O2 Sat by Pulse Oximetry: 98 (RA) Pulse Ox Interpretation: Normal - Progress ED Course And Treament: tib-fib xry right: neg for fx chest/rib right: neg for fx Medical Decision Making Medical Decision Making: Time: 17:02 Initial Impression: fall Initial Plan: --Ribs and chest RT [RAD] --Tibia Fibula Right [RAD] --Reevaluation 18:06 Tibia/Fibula X-Ray FINDINGS: BONES: Bone alignment is normal. There is no acute displaced fracture or bone destruction. There is diffuse bone demineralization. JOINT SPACES: Unremarkable. OTHER FINDINGS: None. IMPRESSION: No acute displaced fracture or dislocation 18:10 -Upon reexamination patient describes dark stools and burning with urination. Orders: --CMP --Lipase --Urine dipstick --CBC w/ differential --Urine culture --Urinalysis 18:26 Ribs and Chest X-Ray FINDINGS: RIGHT RIBS: No fracture or focal lesion visualized. LUNGS: The lungs are well inflated. There is subsegmental atelectasis in the left lower lobe. 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 PLEURA: No pneumothorax or pleural fluid. CARDIOVASCULAR: The heart is not enlarged There is mild cardiomegaly. Mild pulmonary venous congestion. OTHER FINDINGS: None. IMPRESSION: No acute rib fracture. No acute findings. Scribe Attestation: Documented by Chepe Flores, acting as a scribe for Jose Farrar PA-C Provider Scribe Attestation: All medical record entries made by the Scribe were at my direction and personally dictated by me. I have reviewed the chart and agree that the record accurately reflects my personal performance of the history, physical exam, medical decision making, and the department course for this patient. I have also personally directed, reviewed, and agree with the discharge instructions and disposition. Disposition - Clinical Impression Clinical Impression: Fall in elderly patient, UTI (urinary tract infection) - Patient ED Disposition Is Patient to be Admitted: No - Disposition Referrals: Adrian Mauricio MD [Staff Provider] - Disposition: Routine/Home Disposition Time: 18:02 Condition: FAIR Prescriptions: Acetaminophen 2 tab PO Q6 PRN #24 tablet PRN Reason: Pain, Moderate (4-7) Cephalexin [Keflex] 500 mg PO TID #15 capsule Instructions: Urinary Tract Infections in Adults, Preventing Falls in the Older Adult, Ulcer and Gastritis Diet Print Language: CYMRO
--- NOTE | 2018-03-18 18:08 | RAD ---
PROCEDURE: Radiographs of the right tibia and fibula. HISTORY: LEG PAIN COMPARISON: None available. TECHNIQUE: Frontal and lateral views obtained. FINDINGS: BONES: Bone alignment is normal. There is no acute displaced fracture or bone destruction. There is diffuse bone demineralization. JOINT SPACES: Unremarkable. OTHER FINDINGS: None. IMPRESSION: No acute displaced fracture or dislocation
--- NOTE | 2018-03-18 18:28 | RAD ---
PROCEDURE: Radiographs of the Chest and Right Ribs. HISTORY: RIB INJURY COMPARISON: 07/23/2017. TECHNIQUE: Frontal radiograph of the chest and multiple oblique radiographs of the right ribs were obtained. FINDINGS: RIGHT RIBS: No fracture or focal lesion visualized. LUNGS: The lungs are well inflated. There is subsegmental atelectasis in the left lower lobe. 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 PLEURA: No pneumothorax or pleural fluid. CARDIOVASCULAR: The heart is not enlarged There is mild cardiomegaly. Mild pulmonary venous congestion. OTHER FINDINGS: None. IMPRESSION: No acute rib fracture. No acute findings.
[2018-03-18 18:47] LABS: BASO % 0.5 % (0.0-2.0); EOS # 0.2 K/uL (0.0-0.7); EOS % 2.9 % (0.0-4.0); HEMOGLOBIN 11.3 g/dL (12.0-16.0); LYMPH # 3.3 K/uL (1.0-4.3); LYMPH % 40.6 % (20.0-40.0); MEAN CELL VOLUME 97.6 fl (81.0-99.0); MEAN CORPUSCULAR HEMOGLOBIN 32.5 pg (27.0-31.0); MEAN CORPUSCULAR HGB CONC 33.3 g/dL (33.0-37.0); MONO # 0.6 K/uL (0.0-0.8); MONO % 7.7 % (0.0-10.0); NEUT # 3.9 K/uL (1.8-7.0); NEUT % 48.3 % (50.0-75.0); NRBC % 0.1 % (0.0-0.0); RBC 3.46 Mil/uL (3.80-5.20); RED CELL DISTRIBUTION WIDTH 12.8 % (11.5-14.5)
[2018-03-18 19:03] LABS: ALB/GLOB RATIO 1.2 (1.0-2.1); ALBUMIN 3.9 g/dL (3.5-5.0); ALT/SGPT 39 U/L (9-52); AST/SGOT 30 U/L (14-36); BLOOD UREA NITROGEN 25 mg/dl (7-17); GFR AFRICAN-AMERICAN > 60; GFR NON-AFRICAN AMERICAN 59; LIPASE 100 U/L (23-300)
[2018-03-18 19:33] LABS: URINE BACTERIA OCC (<OCC); URINE BILIRUBIN NEGATIVE (NEGATIVE); URINE BLOOD SMALL (NEGATIVE); URINE CLARITY CLOUDY (Clear); URINE COLOR YELLOW (YELLOW); URINE GLUCOSE (UA) NEG (Normal); URINE LEUKOCYTE ESTERASE LARGE Leu/uL (Negative); URINE PROTEIN 30 mg/dL (NEGATIVE); URINE UROBILINOGEN 0.2-1.0 mg/dL (0.2-1.0); WBC CLUMPS MOD /hpf
[2018-03-18 23:28] VITALS: BP 129/81; PULSE 63; RESP 15; O2SAT 97
== END 2018-03-18 23:28 | disposition home or self-care (01) ==
LOC: H.ER 16:46
DX: S79.911A Unspecified injury of right hip, initial encounter (principal); W19.XXXA Unspecified fall, initial encounter; Y92.89 Other specified places as the place of occurrence of the external cause; N39.0 Urinary tract infection, site not specified; E11.9 Type 2 diabetes mellitus without complications; Z79.4 Long term (current) use of insulin; E78.00 Pure hypercholesterolemia, unspecified; I10 Essential (primary) hypertension

== ENCOUNTER 2018-04-25 07:07 | Day surgery (SDC) | payer MEDICARE, OTHER ==
[2018-04-25] MEDS ORDERED: Lactated Ringer's 500 ML IV ONE (08:31)
[2018-04-25 08:48] VITALS: TEMP 97; O2SAT 100
[2018-04-25] MEDS ORDERED: Etomidate 20 mg/10ml Inj IV ONE (09:14)
[2018-04-25] MEDS ORDERED: Midazolam 2 MG/2 ML VIAL ONE (09:14)
[2018-04-25] MEDS ORDERED: Propofol 10 mg/ml Inj (20 ML) ONE (09:15)
[2018-04-25 10:05] VITALS: BP 120/50; PULSE 60; RESP 16
== END 2018-04-25 10:06 | disposition home or self-care (01) ==
LOC: H.ENDO 07:07
PROVIDERS: ATTEND Internal Medicine Gastroenterology
DX: K92.1 Melena (principal); K44.9 Diaphragmatic hernia without obstruction or gangrene; K29.50 Unspecified chronic gastritis without bleeding; E11.9 Type 2 diabetes mellitus without complications
CPT/HCPCS: 43239; 88305; J2001; J2250; J2704; J7120

== ENCOUNTER 2018-07-08 10:22 | Inpatient (IN) | payer MEDICARE, OTHER ==
[2018-07-08 10:22] VITALS: BMI 26.0
[2018-07-08] MEDS ORDERED: Iohexol 240 (50 ml) PO ONE (11:10)
[2018-07-08] MEDS ORDERED: Sodium Chloride 0.9% 1,000 ML IV STA (11:11)
--- NOTE | 2018-07-08 11:25 | ED PDOC ---
HPI: Abdomen Time Seen by Provider: 07/08/18 10:32 Chief Complaint (Nursing): Abdominal Pain Chief Complaint (Provider): abdominal pain History Per: Patient, Neurology Technician (cody [id number]) History/Exam Limitations: physical impairment (poor historian) Onset/Duration Of Symptoms: Days (5), Gradual Current Symptoms Are (Timing): Still Present Context: Food Severity: Moderate Location Of Pain/Discomfort: Periumbilical, Suprapubic Quality Of Discomfort: Unable To Describe Associated Symptoms: Nausea, Vomiting Exacerbating Factors: None Additional Complaint(s): 87yo female c/o ongoing lower abd ("from belly button down") pain now 5 days associated with frequent diarrhea and urination. Denies fever, vomiting, dysuria or back pain. Abnormal Vaginal Bleeding: No Past Medical History Reviewed: Historical Data, Nursing Documentation, Vital Signs Vital Signs: Last Vital Signs Temp 98.3 F 07/08/18 10:24 Pulse 98 H 07/08/18 10:24 Resp 18 07/08/18 10:24 BP 109/65 07/08/18 10:24 Pulse Ox 99 07/08/18 10:24 - Medical History PMH: Diabetes, HTN, Hypercholesterolemia, Pneumonia Denies: Chronic Kidney Disease - Surgical History Surgical History: Cholecystectomy - Family History Family History: States: Unknown Family Hx - Social History Current smoker - smoking cessation education provided: No - Home Medications Home Medications: Ambulatory Orders Medication Instructions Recorded Liraglutide [Victoza 3-Lew] 1 SUBCUT DAILY 04/25/18 Ciprofloxacin [Cipro] 500 mg PO BID #14 tab 07/08/18 Ibuprofen [Motrin Tab] 400 mg PO Q6 PRN #12 tab 07/08/18 metroNIDAZOLE [Flagyl] 500 mg PO TID #21 tab 07/08/18 - Allergies Allergies/Adverse Reactions: Allergies Allergy/AdvReac Type Severity Reaction Status Date / Time No Known Allergies Allergy Verified 04/25/18 08:40 Review of Systems Constitutional: Negative for: Fever, Chills ENT: Negative for: Nose Discharge Cardiovascular: Negative for: Chest Pain Respiratory: Negative for: Cough, Hemoptysis Gastrointestinal: Positive for: Abdominal Pain, Diarrhea. Negative for: Vomiting, Constipation, Melena Genitourinary Female: Positive for: Frequency, Pelvic Pain. Negative for: Dysuria, Hematuria Musculoskeletal: Negative for: Neck Pain, Shoulder Pain, Back Pain, Leg Pain Skin: Negative for: Rash, Lesions, Jaundice Neurological: Negative for: Weakness, Numbness, Headache Psych: Negative for: Depression Physical Exam - Reviewed Nursing Documentation Reviewed: Yes Vital Signs Reviewed: Yes - Physical Exam Appears: Positive for: Well, Non-toxic, No Acute Distress Head Exam: Positive for: ATRAUMATIC, NORMAL INSPECTION, NORMOCEPHALIC Skin: Positive for: Normal Color, Warm, DRY Eye Exam: Positive for: EOMI, Normal appearance, PERRL ENT: Positive for: Normal ENT Inspection Neck: Positive for: Normal, Painless ROM Cardiovascular/Chest: Positive for: Regular Rate, Rhythm Respiratory: Positive for: CNT, Normal Breath Sounds Gastrointestinal/Abdominal: Positive for: Soft, Tenderness (lower abd b/l and periumbilical) Back: Positive for: Normal Inspection Extremity: Positive for: Normal ROM Neurologic/Psych: Positive for: Alert, Oriented - Laboratory Results Result Diagrams: 07/08/18 11:25 07/08/18 11:25 - ECG O2 Sat by Pulse Oximetry: 99 Medical Decision Making Medical Decision Making: workup for abd pain in elderly female initiated labs, gentle IVF, abd pelv CT labs reviewed, WBC normal Chem unremarkable Urine neg leuks or WBC Accession No. : [id number] Patient Name / ID : EFREN SANCHEZ / [id number] Exam Date : 07/08/2018 13:43:43 ( Approved ) Study Comment : Sex / Age : F / 87Y Creator : Vikram Emmanuel MD Dictator : Vikram Emmanuel MD Supervisor Picking Crew : Toll Relief Operator : Vikram Emmanuel MD Approver2 : Report Date : 07/08/2018 14:36:23 My Comment : Date of service: 07/08/2018 PROCEDURE: CT Abdomen and Pelvis with contrast HISTORY: lower abd pain x5 days COMPARISON: No prior abdomen and pelvis CT available for comparison. TECHNIQUE: Following oral and intravenous contrast administration, a CT examination of the abdomen and pelvis performed from the domes of the diaphragms to the symphysis pubis with reformatted datasets provided not only axial but also sagittal and coronal series. Coronal and sagittal reformats were generated. contrast dose: Visipaque 320, 100 cc Radiation dose: Total exam DLP = 380.37 mGy-cm. This CT exam was performed using one or more of the following dose reduction techniques: Automated exposure control, adjustment of the mA and/or kV according to patient size, and/or use of iterative reconstruction technique. FINDINGS: LOWER THORAX: Cardiomegaly is identified. No pleural or pericardial effusion. No definite pulmonary vascular congestion but respiratory motion degrades imaging somewhat. Linear atelectasis or fibrosis seen at the left base minimally. Small hiatal hernia. LIVER: Diminished attenuation is seen throughout the liver compatible with diffuse fatty infiltration. No mass or definite intrahepatic biliary dilatation is identified at this time. GALLBLADDER AND BILE DUCTS: Unremarkable. PANCREAS: Unremarkable. No gross lesion or ductal dilatation. SPLEEN: Unremarkable. ADRENALS: Unremarkable. No mass. KIDNEYS AND URETERS: No obstructive uropathy is identified bilaterally. 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 None are clearly identified in the right kidney. No definite solid mass bilaterally. VASCULATURE: Nonaneurysmal abdominal aortic calcific atherosclerotic changes are identified. BOWEL: Stomach appears unremarkable. Large small bowel loops do not appear obstructed. No suspicious mural findings related to small bowel. However, evaluation of the large bowel reveals mural thickening affecting at least the distal descending colon through rectum segment with local pericolic changes. The majority of the bowel colon is collapsed and limits its evaluation. Pancolitis is difficult to completely exclude. APPENDIX: The appendix not identified. There is no CT evidence to suggest appendicitis. PERITONEUM: Pericolic reaction as described in bowel section. No free fluid. No free air. No peritoneal abscess appreciated. LYMPH NODES: Unremarkable. No enlarged lymph nodes. BLADDER: Urinary bladder appears distended and is otherwise unremarkable. REPRODUCTIVE: Prior hysterectomy pattern suggested. BONES: There is a T11 anterior wedge compression fracture, severe nature, of indeterminate age but this was not identified and most recent prior CT exam of the chest 05/06/2014. T11 appear normal at that time. Grade 1 spondylolisthesis L5-S1 as well as L4-5. OTHER FINDINGS: None. IMPRESSION: 1. Findings suspicious for but not definitive for pancolitis. Segmental colitis is more definitively shown affecting distal descending through rectum distal large bowel. The remainder of the bowel is collapsed and limited evaluation. No abscess or free intrarenal gas. No ascites. 2. Hepatic steatosis. 3. Prior hysterectomy suggested. 4. Anterior wedge compression fracture severe T11, age indeterminate. Clinically correlate further. Grade 1 spondylolistheses L5-S1 and L4-5. Discussed results in croatian via jelly maker Jade Louis, results explained. She feels much better and wishes to go home. Asked for meds to be transmitted to [facility], completed. Abd nontender on re-eval, afebrile w normal vitals and normal WBC. Stable for outpatient workup. States she saw Dr Mauricio for upper endo this summer but prefers new GI doc. Sees PMD Dr Viveros, call placed to inform, case discussed and she agrees with management will see in office next week. 430P patient c/o abd pain requiring analgesics, had large episode diarrhea, feels weak. States lives alone and cannot go to get her medications, frail with unstable gait. To admit Obs given abdominal pain, pancolitis, extreme of age. D/w Dr Anthony environmental project manager medicine. Disposition - Clinical Impression Clinical Impression: Colitis - Patient ED Disposition Is Patient to be Admitted: No Counseled Patient/Family Regarding: Studies Performed, Diagnosis, Need For Followup, Rx Given - Disposition Referrals: Katelyn Alford MD [Family Provider] - Disposition: Routine/Home Disposition Time: 15:34 Condition: STABLE Additional Instructions: See Dr Cortez next week, she is aware of your condition and wants you to make an appointment early next week. Take antibiotics as directed. Return to ER for any worse or new symptoms, fever, pain or blood in stool. Espanol: Chiara Dr Cortez la prxima semana, sydnee es consciente de samaniego condicin y quiere que usted whitney barry tosha a principios de la prxima semana. Beauregard los antibiticos segn lo indicado. Vuelva a ER para obtener sntomas peores o nuevos, fiebre, dolor o janae en las heces. These are your CT results, show your doctor: Accession No. : [id number] Patient Name / ID : EFREN SANCHEZ / [id number] Exam Date : 07/08/2018 13:43:43 ( Approved ) Study Comment : Sex / Age : F / 87Y Creator : Vikram Emmanuel MD Dictator : Vikram Emmanuel MD Supervisor Picking Crew : Toll Relief Operator : Vikram Emmanuel MD Approver2 : Report Date : 07/08/2018 14:36:23 My Comment : Date of service: 07/08/2018 PROCEDURE: CT Abdomen and Pelvis with contrast HISTORY: lower abd pain x5 days COMPARISON: No prior abdomen and pelvis CT available for comparison. TECHNIQUE: Following oral and intravenous contrast administration, a CT examination of the abdomen and pelvis performed from the domes of the diaphragms to the symphysis pubis with reformatted datasets provided not only axial but also sagittal and coronal series. Coronal and sagittal reformats were generated. contrast dose: Visipaque 320, 100 cc Radiation dose: Total exam DLP = 380.37 mGy-cm. This CT exam was performed using one or more of the following dose reduction techniques: Automated exposure control, adjustment of the mA and/or kV according to patient size, and/or use of iterative reconstruction technique. FINDINGS: LOWER THORAX: Cardiomegaly is identified. No pleural or pericardial effusion. No definite pulmonary vascular congestion but respiratory motion degrades imaging somewhat. Linear atelectasis or fibrosis seen at the left base minimally. Small hiatal hernia. LIVER: Diminished attenuation is seen throughout the liver compatible with diffuse f atty infiltration. No mass or definite intrahepatic biliary dilatation is identified at this time. GALLBLADDER AND BILE DUCTS: Unremarkable. PANCREAS: Unremarkable. No gross lesion or ductal dilatation. SPLEEN: Unremarkable. ADRENALS: Unremarkable. No mass. KIDNEYS AND URETERS: No obstructive uropathy is identified bilaterally. 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 None are clearly identified in the right kidney. No definite solid mass bilaterally. VASCULATURE: Nonaneurysmal abdominal aortic calcific atherosclerotic changes are identified. BOWEL: Stomach appears unremarkable. Large small bowel loops do not appear obstructed. No suspicious mural findings related to small bowel. However, evaluation of the large bowel reveals mural thickening affecting at least the distal descending colon through rectum segment with local pericolic changes. The majority of the bowel colon is collapsed and limits its evaluation. Pancolitis is difficult to completely exclude. APPENDIX: The appendix not identified. There is no CT evidence to suggest appendicitis. PERITONEUM: Pericolic reaction as described in bowel section. No free fluid. No free air. No peritoneal abscess appreciated. LYMPH NODES: Unremarkable. No enlarged lymph nodes. BLADDER: Urinary bladder appears distended and is otherwise unremarkable. REPRODUCTIVE: Prior hysterectomy pattern suggested. BONES: There is a T11 anterior wedge compression fracture, severe nature, of indeterminate age but this was not identified and most recent prior CT exam of the chest 05/06/2014. T11 appear normal at that time. Grade 1 spondylolisthesis L5-S1 as well as L4-5. OTHER FINDINGS: None. IMPRESSION: 1. Findings suspicious for but not definitive for pancolitis. Segmental colitis is more definitively shown affecting distal descending through rectum distal large bowel. The remainder of the bowel is collapsed and limited evaluation. No abscess or free intrarenal gas. No ascites. 2. Hepatic steatosis. 3. Prior hysterectomy suggested. 4. Anterior wedge compression fracture severe T11, age indeterminate. Clinically correlate further. Grade 1 spondylolistheses L5-S1 and L4-5. Prescriptions: Ciprofloxacin [Cipro] 500 mg PO BID #14 tab Ibuprofen [Motrin Tab] 400 mg PO Q6 PRN #12 tab PRN Reason: Pain, Moderate (4-7) metroNIDAZOLE [Flagyl] 500 mg PO TID #21 tab Forms: Pressi (Omani)
[2018-07-08] MEDS ORDERED: Iohexol 240 (50 ml) ONE (11:29)
[2018-07-08 11:39] LABS: BASO % 0.3 % (0.0-2.0); EOS # 0.2 K/uL (0.0-0.7); EOS % 2.2 % (0.0-4.0); HEMOGLOBIN 11.6 g/dL (12.0-16.0); LYMPH # 2.3 K/uL (1.0-4.3); LYMPH % 31.2 % (20.0-40.0); MEAN CELL VOLUME 97.7 fl (81.0-99.0); MEAN CORPUSCULAR HEMOGLOBIN 32.6 pg (27.0-31.0); MEAN CORPUSCULAR HGB CONC 33.4 g/dL (33.0-37.0); MEAN PLATELET VOLUME 9.5 fl (7.2-11.7); MONO # 0.4 K/uL (0.0-0.8); MONO % 5.8 % (0.0-10.0); NEUT # 4.5 K/uL (1.8-7.0); NEUT % 60.5 % (50.0-75.0); RBC 3.55 Mil/uL (3.80-5.20); RED CELL DISTRIBUTION WIDTH 12.9 % (11.5-14.5); WHITE BLOOD COUNT 7.4 K/uL (4.8-10.8)
[2018-07-08 11:50] LABS: ALBUMIN 3.6 g/dL (3.5-5.0); CALCIUM 8.9 mg/dL (8.4-10.2)
[2018-07-08] MEDS ORDERED: Sodium Chloride 0.9% 50 ML IV ONE (13:40)
[2018-07-08] MEDS ORDERED: Iodixanol 320 MG/ML 100 ML BOTTLE IV ONE (13:40)
--- NOTE | 2018-07-08 14:40 | CT ---
Date of service: 07/08/2018 PROCEDURE: CT Abdomen and Pelvis with contrast HISTORY: lower abd pain x5 days COMPARISON: No prior abdomen and pelvis CT available for comparison. TECHNIQUE: Following oral and intravenous contrast administration, a CT examination of the abdomen and pelvis performed from the domes of the diaphragms to the symphysis pubis with reformatted datasets provided not only axial but also sagittal and coronal series. Coronal and sagittal reformats were generated. contrast dose: Visipaque 320, 100 cc Radiation dose: Total exam DLP = 380.37 mGy-cm. This CT exam was performed using one or more of the following dose reduction techniques: Automated exposure control, adjustment of the mA and/or kV according to patient size, and/or use of iterative reconstruction technique. FINDINGS: LOWER THORAX: Cardiomegaly is identified. No pleural or pericardial effusion. No definite pulmonary vascular congestion but respiratory motion degrades imaging somewhat. Linear atelectasis or fibrosis seen at the left base minimally. Small hiatal hernia. LIVER: Diminished attenuation is seen throughout the liver compatible with diffuse fatty infiltration. No mass or definite intrahepatic biliary dilatation is identified at this time. GALLBLADDER AND BILE DUCTS: Unremarkable. PANCREAS: Unremarkable. No gross lesion or ductal dilatation. SPLEEN: Unremarkable. ADRENALS: Unremarkable. No mass. KIDNEYS AND URETERS: No obstructive uropathy is identified bilaterally. 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 None are clearly identified in the right kidney. No definite solid mass bilaterally. VASCULATURE: Nonaneurysmal abdominal aortic calcific atherosclerotic changes are identified. BOWEL: Stomach appears unremarkable. Large small bowel loops do not appear obstructed. No suspicious mural findings related to small bowel. However, evaluation of the large bowel reveals mural thickening affecting at least the distal descending colon through rectum segment with local pericolic changes. The majority of the bowel colon is collapsed and limits its evaluation. Pancolitis is difficult to completely exclude. APPENDIX: The appendix not identified. There is no CT evidence to suggest appendicitis. PERITONEUM: Pericolic reaction as described in bowel section. No free fluid. No free air. No peritoneal abscess appreciated. LYMPH NODES: Unremarkable. No enlarged lymph nodes. BLADDER: Urinary bladder appears distended and is otherwise unremarkable. REPRODUCTIVE: Prior hysterectomy pattern suggested. BONES: There is a T11 anterior wedge compression fracture, severe nature, of indeterminate age but this was not identified and most recent prior CT exam of the chest 05/06/2014. T11 appear normal at that time. Grade 1 spondylolisthesis L5-S1 as well as L4-5. OTHER FINDINGS: None. IMPRESSION: 1. Findings suspicious for but not definitive for pancolitis. Segmental colitis is more definitively shown affecting distal descending through rectum distal large bowel. The remainder of the bowel is collapsed and limited evaluation. No abscess or free intrarenal gas. No ascites. 2. Hepatic steatosis. 3. Prior hysterectomy suggested. 4. Anterior wedge compression fracture severe T11, age indeterminate. Clinically correlate further. Grade 1 spondylolistheses L5-S1 and L4-5.
[2018-07-08 14:58] LABS: URINE BILIRUBIN NEGATIVE (NEGATIVE); URINE BLOOD NEGATIVE (NEGATIVE); URINE CLARITY CLEAR (Clear); URINE COLOR YELLOW (YELLOW); URINE GLUCOSE (UA) 50 mg/dL (Normal); URINE HYALINE CAST 0-2 /hpf (0-2); URINE LEUKOCYTE ESTERASE NEG Leu/uL (Negative); URINE PROTEIN NEGATIVE (NEGATIVE); URINE UROBILINOGEN 0.2-1.0 mg/dL (0.2-1.0)
[2018-07-08] MEDS: metroNIDAZOLE 500mg/100ml NS 100 ML IVPB SCH (15:16)
[2018-07-08] MEDS: Ciprofloxacin 400mg/200ml D5W 400 MG/200 ML BAG IVPB SCH (16:44)
[2018-07-08] MEDS: Sodium Chloride 0.9% 1,000 ML IV SCH (18:49)
[2018-07-08] MEDS ORDERED: Patient's Own Med (Dorzolamide 2%/Timolol 0.5% [Cosopt 2%-0.5% Opht] 1 DROP) EACHEYE SCH (21:00)
[2018-07-08] MEDS: Insulin Lispro (humaLOG) 100 Units/ml Inj SC SCH (21:45)
[2018-07-09] MEDS: metroNIDAZOLE 500mg/100ml NS 100 ML IVPB SCH ×4 (00:50→16:08)
[2018-07-09] MEDS: Sodium Chloride 0.9% 1,000 ML IV SCH ×2 (05:48→16:13)
[2018-07-09] MEDS ORDERED: BRIMONIDINE TARTRATE EACHEYE SCH (09:00)
[2018-07-09] MEDS ORDERED: Patient's Own Med (Multivitamin [Multi-Vitamin Daily] 1 TAB) PO SCH (09:00)
[2018-07-09] MEDS ORDERED: TELMISARTAN 20 MG PO SCH (09:00)
[2018-07-09] MEDS: Enoxaparin 40 mg Syringe SC SCH (09:29)
[2018-07-09] MEDS: Insulin Lispro (humaLOG) 100 Units/ml Inj SC SCH ×4 (09:30→22:53)
[2018-07-09] MEDS: GlipiZIDE 5 mg SR Tab PO SCH (09:32)
[2018-07-09] MEDS: Multivitamin With Minerals Tab PO SCH (09:32)
[2018-07-09] MEDS: Dorzolamide 2% Ophth Soln OU SCH ×3 (09:38→16:12)
[2018-07-09] MEDS: Brimonidine 0.2% 50 DROP/5 ML BOTTLE OU SCH ×3 (09:39→16:12)
[2018-07-09] MEDS: Ciprofloxacin 400mg/200ml D5W 400 MG/200 ML BAG IVPB SCH ×2 (11:42→21:07)
[2018-07-09] MEDS: Latanoprost 0.005% Opht SOUTION OU SCH (21:45)
[2018-07-10] MEDS: metroNIDAZOLE 500mg/100ml NS 100 ML IVPB SCH ×3 (00:29→16:55)
[2018-07-10] MEDS: Sodium Chloride 0.9% 1,000 ML IV SCH (07:10)
[2018-07-10] MEDS: Enoxaparin 40 mg Syringe SC SCH (08:59)
[2018-07-10] MEDS: GlipiZIDE 5 mg SR Tab PO SCH (09:00)
[2018-07-10] MEDS: Multivitamin With Minerals Tab PO SCH (09:00)
[2018-07-10] MEDS: Ciprofloxacin 400mg/200ml D5W 400 MG/200 ML BAG IVPB SCH ×2 (09:01→21:12)
[2018-07-10] MEDS: Dorzolamide 2% Ophth Soln OU SCH ×3 (09:03→16:58)
[2018-07-10] MEDS: Insulin Lispro (humaLOG) 100 Units/ml Inj SC SCH ×4 (09:03→23:02)
[2018-07-10] MEDS: Brimonidine 0.2% 50 DROP/5 ML BOTTLE OU SCH ×3 (09:04→16:56)
--- NOTE | 2018-07-10 12:20 | CP.PCM.HP ---
History of Present Illness - History of Present Illness History of Present Illness: CC: Abdominal Pain, & Diarrhea History of Present Illness: An 87yo female c/o ongoing lower abdominal pain 7-8/10, on and off progressively worsening for 5 days associated with frequent diarrhea and urination. +chills. Denies fever, vomiting, dysuria or back pain. In the ER, CT Abdomen/Pelvis showed Pancolitis. Present on Admission - Present on Admission Any Indicators Present on Admission: No Review of Systems - Review of Systems All systems: reviewed and no additional remarkable complaints except Review of Systems: As per HPI Past Patient History - Tetanus Immunizations Tetanus Immunization: Unknown - Past Medical History & Family History Past Medical History?: Yes Past Family History: Reviewed and not pertinent - Past Social History Smoking Status: Never Smoked - CARDIAC Hx Hypercholesterolemia: Yes Hx Hypertension: Yes - PULMONARY Hx Pneumonia: Yes - NEUROLOGICAL Hx Neurological Disorder: No - HEENT Other/Comment: HARD OF HEARING - RENAL Hx Chronic Kidney Disease: No - ENDOCRINE/METABOLIC Hx Endocrine Disorders: Yes Hx Diabetes Mellitus Type 2: Yes - HEMATOLOGICAL/ONCOLOGICAL Hx Blood Disorders: No - INTEGUMENTARY Hx Dermatological Problems: No - MUSCULOSKELETAL/RHEUMATOLOGICAL Hx Musculoskeletal Disorders: Yes Hx Falls: Yes Hx Osteoarthritis: Yes - GASTROINTESTINAL Hx Gastrointestinal Disorders: No - GENITOURINARY/GYNECOLOGICAL Hx Genitourinary Disorders: Yes - PSYCHIATRIC Hx Psychophysiologic Disorder: No Hx Substance Use: No - SURGICAL HISTORY Hx Appendectomy: Yes Hx Cholecystectomy: Yes - ANESTHESIA Hx Anesthesia: Yes Hx Anesthesia Reactions: No Hx Malignant Hyperthermia: No Meds Home Medications: Home Medication List Medication Instructions Recorded Confirmed Type Ciprofloxacin [Cipro] 500 mg PO BID #14 tab 07/08/18 Rx Ibuprofen [Motrin Tab] 400 mg PO Q6 PRN #12 tab 07/08/18 Rx metroNIDAZOLE [Flagyl] 500 mg PO TID #21 tab 07/08/18 Rx Allergies/Adverse Reactions: Allergies Allergy/AdvReac Type Severity Reaction Status Date / Time No Known Allergies Allergy Verified 04/25/18 08:40 Physical Exam - Constitutional Appears: Well, No Acute Distress - Head Exam Head Exam: ATRAUMATIC, NORMAL INSPECTION, NORMOCEPHALIC - Eye Exam Eye Exam: EOMI, Normal appearance, PERRL Pupil Exam: NORMAL ACCOMODATION, PERRL - ENT Exam ENT Exam: Mucous Membranes Moist, Normal Exam - Neck Exam Neck exam: Positive for: Normal Inspection - Respiratory Exam Respiratory Exam: Clear to Auscultation Bilateral, NORMAL BREATHING PATTERN - Cardiovascular Exam Cardiovascular Exam: REGULAR RHYTHM, +S1, +S2 - GI/Abdominal Exam GI & Abdominal Exam: Guarding, Normal Bowel Sounds, Tenderness. absent: Rebound, Rigid - Extremities Exam Extremities exam: Positive for: normal capillary refill, normal inspection - Back Exam Back exam: NORMAL INSPECTION - Neurological Exam Neurological exam: Alert, CN II-XII Intact, Normal Gait, Oriented x3, Reflexes Normal - Psychiatric Exam Psychiatric exam: Normal Affect, Normal Mood - Skin Skin Exam: Dry, Intact, Normal Color, Warm Results - Vital Signs Recent Vital Signs: Last Vital Signs Temp 98.2 F 07/10/18 08:28 Pulse 79 07/10/18 08:28 Resp 20 07/10/18 08:28 BP 117/69 07/10/18 08:28 Pulse Ox 99 07/10/18 08:28 - Labs Result Diagrams: 07/11/18 12:45 07/11/18 12:45 Labs: Laboratory Results - last 24 hr 07/09/18 15:44 POC Glucose (mg/dL) 206 H - Imaging and Cardiology CT scan - abdomen Status: Report reviewed by me Additional comment: Date of service: 07/08/2018 PROCEDURE: CT Abdomen and Pelvis with contrast: IMPRESSION: 1. Findings suspicious for but not definitive for pancolitis. Segmental colitis is more definitively shown affecting distal descending through rectum distal large bowel. The remainder of the bowel is collapsed and limited evaluation. No abscess or free intrarenal gas. No ascites. 2. Hepatic steatosis. 3. Prior hysterectomy suggested. 4. Anterior wedge compression fracture severe T11, age indeterminate. Grade 1 spondylolistheses L5-S1 and L4-5. Assessment & Plan (1) Acute colitis Status: Acute Priority: High (2) Diabetes mellitus with complication in adult patient Status: Chronic Priority: Medium (3) Diabetic neuropathy, type II diabetes mellitus Status: Chronic Priority: Medium (4) Osteoarthritis of both knees Status: Chronic Priority: Low - Assessment and Plan (Free Text) Plan: IVF IV Ciprofloxacin and Flagyl Pain Medication PRN Continue Home Medications
--- NOTE | 2018-07-10 12:21 | CP.PCM.PN ---
Subjective - Date & Time of Evaluation Date of Evaluation: 07/10/18 Time of Evaluation: 11:25 Objective - Vital Signs/Intake and Output Vital Signs (last 24 hours): Temp Pulse Resp BP Pulse Ox 98.2 F 79 20 117/69 99 07/10/18 08:28 07/10/18 08:28 07/10/18 08:28 07/10/18 08:28 07/10/18 08:28 - Medications Medications: Current Medications Acetaminophen (Tylenol 325mg Tab) 650 mg PO Q6 PRN PRN Reason: Pain, moderate (4-7) Last Admin: 07/10/18 10:03 Dose: 650 mg Brimonidine Tartrate (Alphagan 0.2% Opht) 1 drop OU TID MEGAN Last Admin: 07/10/18 09:04 Dose: 1 drop Dicyclomine HCl (Bentyl) 10 mg PO QID MEGAN Last Admin: 07/10/18 09:00 Dose: 10 mg Dorzolamide HCl (Trusopt) 1 drop OU TID MEGAN Last Admin: 07/10/18 09:03 Dose: 1 drop Duloxetine HCl (Cymbalta) 20 mg PO DAILY MEGAN Last Admin: 07/10/18 09:01 Dose: 20 mg Enoxaparin Sodium (Lovenox) 40 mg SC DAILY MEGAN; Protocol Last Admin: 07/10/18 08:59 Dose: 40 mg Ergocalciferol (Drisdol 50,000 Intl Units Cap) 1 cap PO QWK MEGAN Furosemide (Lasix) 40 mg PO MWF [facility] Glipizide (Glucotrol Xl) 5 mg PO DAILY [facility] Last Admin: 07/10/18 09:00 Dose: 5 mg Ciprofloxacin (Cipro 400mg/200ml Dsw) 400 mg in 200 mls @ 200 mls/hr IVPB Q12 MEGAN; Protocol Last Admin: 07/10/18 09:01 Dose: 200 mls/hr Metronidazole (Flagyl 500mg/100ml Ns) 100 mls @ 100 mls/hr IVPB ONCE [facility]; Protocol Last Admin: 07/08/18 15:16 Dose: 100 mls/hr Metronidazole (Flagyl 500mg/100ml Ns) 100 mls @ 100 mls/hr IVPB Q8 MEGAN; Protoco l Last Admin: 07/10/18 09:02 Dose: 100 mls/hr Insulin Human Lispro (Humalog) 0 units SC ACHS [facility]; Protocol Last Admin: 07/10/18 09:03 Dose: Not Given Latanoprost (Xalatan Opht) 1 drop OU HS [facility] Last Admin: 07/09/18 21:45 Dose: 1 drop Losartan Potassium (Cozaar) 25 mg PO DAILY [facility] Last Admin: 07/10/18 09:01 Dose: 25 mg Multivitamins/Minerals (Therapeutic-M Tab) 1 tab PO DAILY [facility] Last Admin: 07/10/18 09:00 Dose: 1 tab Pioglitazone HCl (Actos) 30 mg PO DAILY [facility] Last Admin: 07/10/18 09:00 Dose: 30 mg Pregabalin (Lyrica) 50 mg PO Q12 [facility] Last Admin: 07/10/18 09:05 Dose: 50 mg Sucralfate (Carafate Tab) 1 gm PO TIDAC [facility] Last Admin: 07/10/18 09:02 Dose: 1 gm Timolol Maleate (Timoptic 0.5% [facility]) 1 drop OU BID [facility] Last Admin: 07/10/18 09:03 Dose: 1 drop Zolpidem Tartrate (Ambien) 5 mg PO HS [facility] Last Admin: 07/09/18 22:50 Dose: 5 mg - Labs Labs: 07/08/18 11:25 07/08/18 11:25
[2018-07-10] MEDS: Latanoprost 0.005% Opht SOUTION OU SCH (21:43)
[2018-07-11] MEDS: metroNIDAZOLE 500mg/100ml NS 100 ML IVPB SCH ×4 (00:52→16:27)
[2018-07-11] MEDS: Ciprofloxacin 400mg/200ml D5W 400 MG/200 ML BAG IVPB SCH ×2 (08:39→20:28)
[2018-07-11] MEDS: Dorzolamide 2% Ophth Soln OU SCH ×3 (08:40→16:28)
[2018-07-11] MEDS: Brimonidine 0.2% 50 DROP/5 ML BOTTLE OU SCH ×3 (08:40→16:28)
[2018-07-11] MEDS: Multivitamin With Minerals Tab PO SCH (08:40)
[2018-07-11] MEDS: Enoxaparin 40 mg Syringe SC SCH (08:41)
[2018-07-11] MEDS: GlipiZIDE 5 mg SR Tab PO SCH (08:41)
[2018-07-11] MEDS: Insulin Lispro (humaLOG) 100 Units/ml Inj SC SCH ×3 (08:42→16:27)
[2018-07-11 12:52] LABS: HEMOGLOBIN 11.7 g/dL (12.0-16.0); MEAN CELL VOLUME 97.1 fl (81.0-99.0); MEAN CORPUSCULAR HEMOGLOBIN 33.9 pg (27.0-31.0); MEAN CORPUSCULAR HGB CONC 34.9 g/dL (33.0-37.0); RBC 3.46 Mil/uL (3.80-5.20); RED CELL DISTRIBUTION WIDTH 12.6 % (11.5-14.5); WHITE BLOOD COUNT 6.5 K/uL (4.8-10.8)
[2018-07-11 13:05] LABS: BLOOD UREA NITROGEN 19 mg/dl (7-17); CALCIUM 8.4 mg/dL (8.4-10.2); GFR NON-AFRICAN AMERICAN > 60
[2018-07-11] MEDS: Latanoprost 0.005% Opht SOUTION OU SCH (22:04)
[2018-07-12] MEDS: metroNIDAZOLE 500mg/100ml NS 100 ML IVPB SCH ×4 (00:22→18:14)
[2018-07-12] MEDS: Insulin Lispro (humaLOG) 100 Units/ml Inj SC SCH ×5 (02:23→23:05)
[2018-07-12] MEDS: GlipiZIDE 5 mg SR Tab PO SCH (08:58)
[2018-07-12] MEDS: Multivitamin With Minerals Tab PO SCH (08:58)
[2018-07-12] MEDS: Enoxaparin 40 mg Syringe SC SCH (08:59)
[2018-07-12] MEDS: Ciprofloxacin 400mg/200ml D5W 400 MG/200 ML BAG IVPB SCH ×2 (09:00→20:51)
[2018-07-12] MEDS: Dorzolamide 2% Ophth Soln OU SCH ×3 (09:00→18:15)
[2018-07-12] MEDS: Brimonidine 0.2% 50 DROP/5 ML BOTTLE OU SCH ×3 (09:00→18:15)
--- NOTE | 2018-07-12 12:25 | CP.PCM.PN ---
Subjective - Date & Time of Evaluation Date of Evaluation: 07/11/18 Time of Evaluation: 17:20 - Subjective Subjective: Seen and examined at the bed side. Continue to complain abdominal pain. Denies fever or chills. Objective - Vital Signs/Intake and Output Vital Signs (last 24 hours): Temp Pulse Resp BP Pulse Ox 97.7 F 71 20 128/67 100 07/12/18 08:22 07/12/18 08:22 07/12/18 08:22 07/12/18 08:22 07/12/18 08:22 - Medications Medications: Current Medications Acetaminophen (Tylenol 325mg Tab) 650 mg PO Q6 PRN PRN Reason: Pain, moderate (4-7) Last Admin: 07/11/18 16:29 Dose: 650 mg Brimonidine Tartrate (Alphagan 0.2% Opht) 1 drop OU TID [facility] Last Admin: 07/12/18 09:00 Dose: 1 drop Dicyclomine HCl (Bentyl) 10 mg PO QID [facility] Last Admin: 07/12/18 08:58 Dose: 10 mg Dorzolamide HCl (Trusopt) 1 drop OU TID [facility] Last Admin: 07/12/18 09:00 Dose: 1 drop Duloxetine HCl (Cymbalta) 20 mg PO DAILY [facility] Last Admin: 07/12/18 08:58 Dose: 20 mg Enoxaparin Sodium (Lovenox) 40 mg SC DAILY [facility]; Protocol Last Admin: 07/12/18 08:59 Dose: 40 mg Ergocalciferol (Drisdol 50,000 Intl Units Cap) 1 cap PO QWK [facility] Furosemide (Lasix) 40 mg PO MWF [facility] Last Admin: 07/11/18 08:41 Dose: 40 mg Glipizide (Glucotrol Xl) 5 mg PO DAILY [facility] Last Admin: 07/12/18 08:58 Dose: 5 mg Ciprofloxacin (Cipro 400mg/200ml Dsw) 400 mg in 200 mls @ 200 mls/hr IVPB Q12 [facility]; Protocol Last Admin: 07/12/18 09:00 Dose: 200 mls/hr Metronidazole (Flagyl 500mg/100ml Ns) 100 mls @ 100 mls/hr IVPB ONCE [facility]; Protocol Last Admin: 07/08/18 15:16 Dose: 100 mls/hr Metronidazole (Flagyl 500mg/100ml Ns) 100 mls @ 100 mls/hr IVPB Q8 [facility]; Pr otocol Last Admin: 07/12/18 08:59 Dose: 100 mls/hr Insulin Human Lispro (Humalog) 0 units SC ACHS [facility]; Protocol Last Admin: 07/12/18 08:57 Dose: Not Given Latanoprost (Xalatan Opht) 1 drop OU HS [facility] Last Admin: 07/11/18 22:04 Dose: 1 drop Losartan Potassium (Cozaar) 25 mg PO DAILY [facility] Last Admin: 07/12/18 08:58 Dose: 25 mg Multivitamins/Minerals (Therapeutic-M Tab) 1 tab PO DAILY [facility] Last Admin: 07/12/18 08:58 Dose: 1 tab Pioglitazone HCl (Actos) 30 mg PO DAILY [facility] Last Admin: 07/12/18 08:58 Dose: 30 mg Pregabalin (Lyrica) 50 mg PO Q12 [facility] Last Admin: 07/12/18 09:02 Dose: 50 mg Sucralfate (Carafate Tab) 1 gm PO TIDAC [facility] Last Admin: 07/12/18 08:58 Dose: 1 gm Timolol Maleate (Timoptic 0.5% Ophth Soln) 1 drop OU BID [facility] Last Admin: 07/12/18 09:00 Dose: 1 drop Zolpidem Tartrate (Ambien) 5 mg PO HS [facility] Last Admin: 07/11/18 22:04 Dose: 5 mg - Labs Labs: 07/11/18 12:45 07/11/18 12:45 - Constitutional Appears: No Acute Distress - Head Exam Head Exam: ATRAUMATIC, NORMAL INSPECTION, NORMOCEPHALIC - Eye Exam Eye Exam: EOMI, Normal appearance, PERRL Pupil Exam: NORMAL ACCOMODATION, PERRL - ENT Exam ENT Exam: Mucous Membranes Moist, Normal Exam - Neck Exam Neck Exam: Full ROM, Normal Inspection. absent: Lymphadenopathy - Respiratory Exam Respiratory Exam: Clear to Ausculation Bilateral, NORMAL BREATHING PATTERN - Cardiovascular Exam Cardiovascular Exam: REGULAR RHYTHM, +S1, +S2. absent: Murmur - GI/Abdominal Exam GI & Abdominal Exam: Soft, Normal Bowel Sounds. absent: Tenderness - Extremities Exam Extremities Exam: Normal Capillary Refill, Normal Inspection. absent: Joint Swelling, Pedal Edema - Back Exam Back Exam: NORMAL INSPECTION - Neurological Exam Neurological Exam: Alert, Awake, CN II-XII Intact, Normal Gait, Oriented x3 - Psychiatric Exam Psychiatric exam: Normal Affect, Normal Mood - Skin Skin Exam: Dry, Intact, Normal Color, Warm Assessment and Plan (1) Acute colitis Status: Acute (2) Diabetes mellitus with complication in adult patient Status: Chronic (3) Diabetic neuropathy, type II diabetes mellitus Status: Chronic (4) Osteoarthritis of both knees Status: Chronic - Assessment and Plan (Free Text) Plan: Plan: IVF IV Ciprofloxacin and Flagyl Pain Medication PRN Continue Home Medications
--- NOTE | 2018-07-12 14:18 | CT ---
Date of service: 07/12/2018 PROCEDURE: CT Thoracic Spine without contrast HISTORY: T11 compression fracture COMPARISON: Chest radiographs from 03/18/2018 and 07/23/2017 TECHNIQUE: Axial computed tomography images were obtained of the thoracic spine without intravenous contrast. Coronal and sagittal reformatted images were created and reviewed. Radiation dose: Total exam DLP = 495.8 mGy-cm. This CT exam was performed using one or more of the following dose reduction techniques: Automated exposure control, adjustment of the mA and/or kV according to patient size, and/or use of iterative reconstruction technique. FINDINGS: VERTEBRAE: There is severe diffuse bone demineralization. There is mild dextrocurvature in the thoracic spine. There is a chronic osteoporotic compression fracture in the T11 vertebral body with approximately 70% loss of central vertebral height. DISCS/SPINAL CANAL/NEURAL FORAMINA: There is multilevel disc degeneration in the mid and lower thoracic spine with multilevel disc desiccation in the lower thoracic spine, worse at T8-9 with diffuse disc bulge and mild neural foraminal narrowing. No central spinal canal stenosis. PARASPINAL SOFT TISSUES: The paraspinous soft tissues are normal. OTHER FINDINGS: Unremarkable. 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 Multilevel degenerative disc disease in the mid and lower thoracic spine with multilevel disc desiccation in the lower thoracic spine, worse at T8-9, no central spinal canal stenosis.
--- NOTE | 2018-07-12 18:03 | PQF ---
PROVIDER RESPONSE TEXT: DM II with Hyperglycemia REVIEWER QUERY TEXT: Diabetic Associated Manifestations Documentation of a history of DM II. Glucose runnin-308. Please specify any manifestations associated / due to diabetes Such as: -- Diabetes with hypoglycemia -- Diabetes with hyperglycemia -- Diabetes with renal manifestation specify type -- Diabetes with neurologic manifestation specify type -- Diabetes with ophthalmic manifestation specify type -- Diabetes with peripheral circulatory manifestation specify type -- Other, please specify The patient's Clinical Indicators include: Documentation of a history of DM II. Glucose runnin-308. ACCUCHECKS monitored with insulin coverage. Medication: Actos, Glucotrol XL Query created by: Larisa Butts on 07/12/2018 8:47 AM Electronically signed by: Adolfo Anthony MD 07/12/2018 6:01 PM
--- NOTE | 2018-07-12 18:04 | PQF ---
PROVIDER RESPONSE TEXT: Infectious Colitis REVIEWER QUERY TEXT: Documentation Clarification Your help is requested in clarifying the following clinical documentation, if you can please further specify in the medical record and discharge summary. Please further clarify the Suspected type of Colitis if known: Such as: --Allergic --Drug Induced --Infectious --Ischemic --Non-Infectious --Toxic --Ulcerative --Other please specify --Unable to determine The patient's Clinical Indicators include: ER: C/O Abdominal pain and diarrhea WBC 7.4, Afebrile CT ABDOMEN: Findings suspicious for but not definitive for pancolitis. Segmental colitis is more def initively shown affecting distal descending through rectum distal large bowel. The remainder of the bowel is collapsed and limited evaluation. No abscess or free intrarenal gas. No ascites. SEE FULL REPORT FOR OTHER FINDINGS. Rx: Cipro, Flagyl Query created by: Larisa Butts on 07/12/2018 12:49 PM Electronically signed by: Adolfo Anthony MD 07/12/2018 6:01 PM
[2018-07-12] MEDS: Latanoprost 0.005% Opht SOUTION OU SCH (22:58)
[2018-07-13] MEDS: metroNIDAZOLE 500mg/100ml NS 100 ML IVPB SCH ×3 (00:45→19:19)
[2018-07-13 06:29] LABS: HEMOGLOBIN 10.4 g/dL (12.0-16.0); MEAN CELL VOLUME 97.2 fl (81.0-99.0); MEAN CORPUSCULAR HEMOGLOBIN 33.3 pg (27.0-31.0); MEAN CORPUSCULAR HGB CONC 34.3 g/dL (33.0-37.0); RBC 3.13 Mil/uL (3.80-5.20); RED CELL DISTRIBUTION WIDTH 12.8 % (11.5-14.5); WHITE BLOOD COUNT 6.7 K/uL (4.8-10.8)
[2018-07-13 06:45] LABS: BLOOD UREA NITROGEN 18 mg/dl (7-17); CALCIUM 8.4 mg/dL (8.4-10.2); GFR NON-AFRICAN AMERICAN 59
[2018-07-13] MEDS: Insulin Lispro (humaLOG) 100 Units/ml Inj SC SCH ×3 (08:33→19:19)
[2018-07-13] MEDS: Multivitamin With Minerals Tab PO SCH (08:35)
[2018-07-13] MEDS: GlipiZIDE 5 mg SR Tab PO SCH (08:35)
[2018-07-13] MEDS: Brimonidine 0.2% 50 DROP/5 ML BOTTLE OU SCH ×3 (08:38→19:18)
[2018-07-13] MEDS: Enoxaparin 40 mg Syringe SC SCH (08:38)
[2018-07-13] MEDS: Dorzolamide 2% Ophth Soln OU SCH ×3 (08:38→19:19)
[2018-07-13] MEDS: Ciprofloxacin 400mg/200ml D5W 400 MG/200 ML BAG IVPB SCH (08:39)
[2018-07-13] MEDS ORDERED: Ergocalciferol 50,000 Intl Units Cap PO SCH (09:00)
[2018-07-13 10:42] VITALS: BP 124/66; PULSE 77; RESP 20; TEMP 97.9; O2SAT 99
--- NOTE | 2018-07-13 12:47 | MRI ---
Date of service: 07/12/2018 PROCEDURE: MR LUMBAR SPINE WITHOUT CONTRAST HISTORY: compression fx, lbp COMPARISON: None available. TECHNIQUE: Multiecho multiplanar sequences were performed through the lumbar spine without the use of intravenous contrast. FINDINGS: The lumbar lordotic curvature is interrupted inferiorly by a minimal grade 1 spondylolisthesis of L4 anterior to L5 and additional grade 1 spondylolisthesis of L5 anterior to S1. Multilevel endplate degenerative changes are mild but relatively diffuse. Multilevel facet joint degenerative arthropathy identified with visualized prevertebral paraspinal soft tissues appear diffusely unremarkable. Mild levoscoliotic lumbar spinal deformity. No acute fracture is appreciated throughout the exam. Incidental note is made of a severe anterior wedge compression fracture of the T11 vertebral body without related severe stenosis or definite fragmentation identified. Small benign hemangioma is incidentally captured at the T12 to body with remaining marrow signal throughout the lumbar spine unremarkable. Conus medullaris unremarkable at the level of L1 superior endplate. Paraspinal soft tissues are unremarkable. T11-12 & T12-L1: At T11-12, a circumferential disc osteophyte complex identified combined with facet joint degenerative arthropathy resulting in borderline central stenosis. No significant neural foraminal stenosis bilaterally. At T12-L1, no significant stenosis identified with a circumferential disc bulge present as well as moderate facet joint degenerative change. L1-2: No disc herniation. A circumferential disc bulge is identified combined with moderate facet joint degenerative change resulting in encroachment of the lateral recesses without generalized central canal stenosis. No significant neural foraminal stenosis bilaterally. L2-3: No definite disc herniation. A mild central stenosis results from circumferential disc bulge combining with prominent facet joint arthropathy with stenosis slightly greater the left and right sides. Mild right and moderate left degenerative neural foraminal stenoses are identified. Asymmetryt is on the basis of scoliosis. L3-4: No disc herniation. Borderline central canal stenosis due to prominent facet degenerative arthropathy and limited but circumferential disc bulging. [id number] right and borderline left neural foraminal degenerative stenosis identified. L4-5: A moderate to severe central stenosis results from grade 1 spondylolisthesis and gross facet joint degenerative arthropathy with moderate bilateral neural foraminal stenosis identified. No definitive disc herniation. L5-S1: No disc herniation. Spondylolisthesis and gross facet joint degenerative arthropathy results in mild central canal stenosis, severe left neural foraminal stenosis and moderate to severe right neural foraminal stenosis. OTHER FINDINGS: None. IMPRESSION: 1. Grade 1 spondylolisthesis ease are identified at L4-5 and L5-S1 as discussed above with degenerative facet joint arthropathy the etiology at L4-5. Left L5 spondylolysis is noted is etiology at L5-S1 in part with gross facet arthropathy bilaterally. Moderate to severe central canal stenosis is identified L4-5, mild at L5-S1. Advanced bilateral neural foraminal stenoses are also identified. 2. No definite disc herniation throughout the exam. Levoscoliotic lumbar spinal deformity results in asymmetric neural foraminal stenoses at mid to inferior lumbar spine. 3. Incidental chronic severe anterior wedge compression fracture T11.
--- NOTE | 2018-07-13 12:55 | MRI ---
Date of service: 07/12/2018 PROCEDURE: MR THORACIC SPINE WITHOUT CONTRAST HISTORY: T11 vertebral fx COMPARISON: Thoracic spine CT 07/12/2018. TECHNIQUE: Multiecho multiplanar sequences were performed through the thoracic spine without the use of intravenous contrast. FINDINGS: ALIGNMENT: Normal thoracic spinal alignment. Subtle dextroscoliosis of thoracic spine and mild level scoliosis of lumbar spine. VERTEBRA: Vertebral body heights are adequately preserved exception of T11 which is severely compressed with anterior wedging. No fragmentation is identified. Findings felt to represent a chronic change given lack of significant edema. No spondylolisthesis throughout the thoracic spine. MARROW: Marrow signal unremarkable. PARASPINAL SOFT TISSUES: Unremarkable. CORD: Thoracic spinal cord appears normal in course caliber contour and intrinsic signal with conus medullaris terminating at L1 level. DISCS: No disc herniation is appreciated throughout the thoracic spine. Generalized circumferential disc bulging at T10-11, T11-12 and minimally at T12-L1 encroach ventral nerve roots without significant generalized central stenosis occurring. OTHER FINDINGS: None. IMPRESSION: Subtle dextroscoliosis of thoracic spine multilevel degenerative disc changes appreciate without disc herniation. Chronic severe compression fracture of T11 is noted and disc bulging at T10-11, T11-12 and T12-L1 variable encroach ventral nerve roots without significant generalized central stenosis occurring. No spondylolisthesis.
--- NOTE | 2018-07-13 14:21 | CP.PCM.PCO ---
Assessment/Plan - Assessment/Plan Assessment (Free Text): Pt ambulating in room without distress, stable. MRI report show chronic compression fracture. Seen by Dr. Alcazar, no intervention at this time. Patient cleared to be d/c'd home. Rx Cipro/Flagyl given. Cleared by Dr. Anthony for d/c
--- NOTE | 2018-07-14 08:22 | CON ---
DATE: 07/13/2018 REASON FOR CONSULTATION: Fracture T11. HISTORY OF PRESENT ILLNESS: The patient is an 87-year-old young woman who was admitted four days ago with recurrent ongoing abdominal pain, reportedly associated with frequent diarrhea and urination. CAT scan of the abdomen and pelvis done in the emergency room showed pancolitis. However, a fracture of T11 was also seen. It was reported on the CAT scan, thoracic CAT scan done is being chronic as evidently was present on previous studies. However, MRIs of the thoracic and lumbar spine were also done yesterday, and the consult requested. The patient is ambulatory with the cane. She is complaining of pain in her hip which she describes it but not in her back. Evidently, she had a fall last July. She relates through the nurse who was helping to translate. PAST MEDICAL HISTORY: Significant for hypertension, hypocholesterolemia. She has type 2 diabetes as well. MEDICATIONS: Medicines are as listed on the chart. ALLERGIES: NO KNOWN ALLERGIES. PAST SURGICAL HISTORY: Significant for appendectomy and cholecystectomy. PHYSICAL EXAMINATION: EXTREMITIES: On examination, there is no tenderness to palpation along the spinous processes. She does have tenderness over the left greater trochanter that is noted with gentle internal rotation of her left hip. NEUROLOGIC: Grossly neurologic exam is intact in both lower extremity. Studies reviewed and shows significant compression fracture at T11. However, no obvious edema or significant edema seen on the STIR images or the new MRIs done. Radiologist's impression was that this is most likely chronic. She does have spondylolisthesis at L4-L5 and L5-S1 as well. The patient does complain of some left-sided lower back pain which obviously could be due to the degenerative changes in the lower lumbar and lumbosacral region. However, she is point tender over the trochanteric region of the left femur and that is her biggest complaint at this time. As the fracture is not acute, no treatment needed, especially given the fact that at the age of 87 and being ambulatory with her cane, again there is nothing, and no more aggressive intervention is indicated. She can see an orthopedist about the hip pain if it continues or just get some therapy for, and then if it does not resolve, proceed from there. Thank you for allowing me to participate in the care of your patient. Thomas Alaczar MD [facility] # [id number]
--- NOTE | 2018-07-15 04:12 | CP.PCM.PN ---
Subjective - Date & Time of Evaluation Date of Evaluation: 07/12/18 Time of Evaluation: 19:15 Objective - Vital Signs/Intake and Output Vital Signs (last 24 hours): Temp Pulse Resp BP Pulse Ox 97.9 F 77 20 124/66 99 07/13/18 08:36 07/13/18 08:36 07/13/18 08:36 07/13/18 08:36 07/13/18 08:36 - Labs Labs: 07/13/18 06:05 07/13/18 06:05 Assessment and Plan (1) Acute colitis Status: Acute (2) Diabetes mellitus with complication in adult patient Status: Chronic (3) Diabetic neuropathy, type II diabetes mellitus Status: Chronic (4) Osteoarthritis of both knees Status: Chronic
--- NOTE | 2018-07-15 04:13 | CP.PCM.DIS ---
Provider - Provider Date of Admission: 07/10/18 13:50 Attending physician: Adolfo Anthony MD Time Spent in preparation of Discharge (in minutes): 25 Diagnosis - Discharge Diagnosis (1) Acute colitis Status: Acute Priority: High (2) Diabetes mellitus with complication in adult patient Status: Chronic Priority: Medium (3) Diabetic neuropathy, type II diabetes mellitus Status: Chronic Priority: Medium (4) Osteoarthritis of both knees Status: Chronic Priority: Low Hospital Course - Lab Results Lab Results: Most Recent Lab Values WBC 6.7 K/uL (4.8-10.8) 07/13/18 06:05 RBC 3.13 Mil/uL (3.80-5.20) L 07/13/18 06:05 Hgb 10.4 g/dL (12.0-16.0) L 07/13/18 06:05 Hct 30.5 % (34.0-47.0) L 07/13/18 06:05 MCV 97.2 fl (81.0-99.0) 07/13/18 06:05 MCH 33.3 pg (27.0-31.0) H 07/13/18 06:05 MCHC 34.3 g/dL (33.0-37.0) 07/13/18 06:05 RDW 12.8 % (11.5-14.5) 07/13/18 06:05 Plt Count 129 K/uL (130-400) L D 07/13/18 06:05 MPV 9.5 fl (7.2-11.7) 07/08/18 11:25 Neut % (Auto) 60.5 % (50.0-75.0) 07/08/18 11:25 Lymph % (Auto) 31.2 % (20.0-40.0) 07/08/18 11:25 Frio % (Auto) 5.8 % (0.0-10.0) 07/08/18 11:25 Eos % (Auto) 2.2 % (0.0-4.0) 07/08/18 11:25 Baso % (Auto) 0.3 % (0.0-2.0) 07/08/18 11:25 Neut # (Auto) 4.5 K/uL (1.8-7.0) 07/08/18 11:25 Lymph # (Auto) 2.3 K/uL (1.0-4.3) 07/08/18 11:25 Frio # (Auto) 0.4 K/uL (0.0-0.8) 07/08/18 11:25 Eos # (Auto) 0.2 K/uL (0.0-0.7) 07/08/18 11:25 Baso # (Auto) 0.0 K/uL (0.0-0.2) 07/08/18 11:25 Sodium 142 mmol/l (132-148) 07/13/18 06:05 Potassium 3.6 MMOL/L (3.6-5.0) 07/13/18 06:05 Chloride 111 mmol/L (98-107) H 07/13/18 06:05 Carbon Dioxide 26 mmol/L (22-30) 07/13/18 06:05 Anion Gap 9 (10-20) L 07/13/18 06:05 BUN 18 mg/dl (7-17) H 07/13/18 06:05 Creatinine 0.9 mg/dl (0.7-1.2) 07/13/18 06:05 Est GFR ( Amer) > 60 07/13/18 06:05 Est GFR (Non-Af Amer) 59 07/13/18 06:05 POC Glucose (mg/dL) 153 mg/dL (65-110) H 07/13/18 15:42 Random Glucose 127 mg/dL (65-105) H 07/13/18 06:05 Calcium 8.4 mg/dL (8.4-10.2) 07/13/18 06:05 Total Bilirubin 0.4 mg/dl (0.2-1.3) 07/08/18 11:25 AST 28 U/L (14-36) 07/08/18 11:25 ALT 37 U/L (9-52) 07/08/18 11:25 Alkaline Phosphatase 55 U/L (38-126) 07/08/18 11:25 Total Protein 7.2 G/DL (6.3-8.2) 07/08/18 11:25 Albumin 3.6 g/dL (3.5-5.0) 07/08/18 11:25 Globulin 3.6 gm/dL (2.2-3.9) 07/08/18 11:25 Albumin/Globulin Ratio 1.0 (1.0-2.1) 07/08/18 11:25 Lipase 78 U/L (23-300) 07/08/18 11:25 Urine Color Yellow (YELLOW) 07/08/18 14:35 Urine Clarity Clear (Clear) 07/08/18 14:35 Urine pH 6.0 (5.0-8.0) 07/08/18 14:35 Ur Specific [place] 1.018 (1.003-1.030) 07/08/18 14:35 Urine Protein Negative mg/dL (NEGATIVE) 07/08/18 14:35 Urine Glucose (UA) 50 mg/dL (Normal) 07/08/18 14:35 Urine Ketones Negative mg/dL (NEGATIVE) 07/08/18 14:35 Urine Blood Negative (NEGATIVE) 07/08/18 14:35 Urine Nitrate Negative (NEGATIVE) 07/08/18 14:35 Urine Bilirubin Negative (NEGATIVE) 07/08/18 14:35 Urine Urobilinogen 0.2-1.0 mg/dL (0.2-1.0) 07/08/18 14:35 Ur Leukocyte Esterase Neg Ayse/uL (Negative) 07/08/18 14:35 Urine RBC (Auto) 2 /hpf (0-3) 07/08/18 14:35 Urine Microscopic WBC < 1 /hpf (0-5) 07/08/18 14:35 Hyaline Casts 0-2 /hpf (0-2) 07/08/18 14:35 C. difficile Ag & Toxin Negative (NEGATIVE) 07/10/18 18:07 Discharge Exam - Head Exam Head Exam: ATRAUMATIC, NORMAL INSPECTION, NORMOCEPHALIC Discharge Plan - Discharge Medications Prescriptions: Ciprofloxacin [Cipro] 500 mg PO BID #14 tab metroNIDAZOLE [Flagyl] 500 mg PO TID #21 tab Ibuprofen [Motrin Tab] 400 mg PO Q6 PRN #12 tab PRN Reason: Pain, Moderate (4-7) - Follow Up Plan Condition: STABLE Disposition: DISCHARGED TO HOME CARE Instructions: Diarrhea in Adolescents and Adults, Inflammatory Bowel Disease Additional Instructions: See Dr Cortez next week, she is aware of your condition and wants you to make an appointment early next week. Take antibiotics as directed. Return to ER for any worse or new symptoms, fever, pain or blood in stool. Espanol: Chiara Dr Cortez la prxima semana, sydnee es consciente de samaniego condicin y quiere que usted whitney barry tosha a principios de la prxima semana. [place] los antibiticos segn lo indicado. Vuelva a ER para obtener sntomas peores o nuevos, fiebre, dolor o janae en las heces. These are your CT results, show your doctor: Accession No. : [id number] Patient Name / ID : EFREN SANCHEZ / [id number] Exam Date : 07/08/2018 13:43:43 ( Approved ) Study Comment : Sex / Age : F / 87Y Creator : Vikram Emmanuel MD Dictator : Vikram Emmanuel MD [employer] : [employer] : Vikram Emmanuel MD Approver2 : Report Date : 07/08/2018 14:36:23 My Comment : Date of service: 07/08/2018 PROCEDURE: CT Abdomen and Pelvis with contrast HISTORY: lower abd pain x5 days COMPARISON: No prior abdomen and pelvis CT available for comparison. TECHNIQUE: Following oral and intravenous contrast administration, a CT examination of the abdomen and pelvis performed from the domes of the diaphragms to the symphysis pubis with reformatted datasets provided not only axial but also sagittal and coronal series. Coronal and sagittal reformats were generated. contrast dose: Visipaque 320, 100 cc Radiation dose: Total exam DLP = 380.37 mGy-cm. This CT exam was performed using one or more of the following dose reduction techniques: Automated exposure control, adjustment of the mA and/or kV according to patient size, and/or use of iterative reconstruction technique. FINDINGS: LOWER THORAX: Cardiomegaly is identified. No pleural or pericardial effusion. No definite pulmonary vascular congestion but respiratory motion degrades imaging somewhat. Linear atelectasis or fibrosis seen at the left base minimally. Small hiatal hernia. LIVER: Diminished attenuation is seen throughout the liver compatible with diffuse fatty infiltration. No mass or definite intrahepatic biliary dilatation is identified at this time. GALLBLADDER AND BILE DUCTS: Unremarkable. PANCREAS: Unremarkable. No gross lesion or ductal dilatation. SPLEEN: Unremarkable. ADRENALS: Unremarkable. No mass. KIDNEYS AND URETERS: No obstructive uropathy is identified bilaterally. 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 None are clearly identified in the right kidney. No definite solid mass bilaterally. VASCULATURE: Nonaneurysmal abdominal aortic calcific atherosclerotic changes are identified. BOWEL: Stomach appears unremarkable. Large small bowel loops do not appear obstructed. No suspicious mural findings related to small bowel. However, evaluation of the large bowel reveals mural thickening affecting at least the distal descending colon through rectum segment with local pericolic changes. The majority of the bowel colon is collapsed and limits its evaluation. Pancolitis is difficult to completely exclude. APPENDIX: The appendix not identified. There is no CT evidence to suggest appendicitis. PERITONEUM: Pericolic reaction as described in bowel section. No free fluid. No free air. No peritoneal abscess appreciated. LYMPH NODES: Unremarkable. No enlarged lymph nodes. BLADDER: Urinary bladder appears distended and is otherwise unremarkable. REPRODUCTIVE: Prior hysterectomy pattern suggested. BONES: There is a T11 anterior wedge compression fracture, severe nature, of indeterm inate age but this was not identified and most recent prior CT exam of the chest 05/06/2014. T11 appear normal at that time. Grade 1 spondylolisthesis L5-S1 as well as L4-5. OTHER FINDINGS: None. IMPRESSION: 1. Findings suspicious for but not definitive for pancolitis. Segmental colitis is more definitively shown affecting distal descending through rectum distal large bowel. The remainder of the bowel is collapsed and limited evaluation. No abscess or free intrarenal gas. No ascites. 2. Hepatic steatosis. 3. Prior hysterectomy suggested. 4. Anterior wedge compression fracture severe T11, age indeterminate. Clinically correlate further. Grade 1 spondylolistheses L5-S1 and L4-5. Referrals: Ryan Dominguez MD [Staff Provider] - Katelyn Alford MD [Family Provider] -
== END 2018-07-13 20:15 | disposition home health service (06) | DRG 392 ==
LOC: H.ER 10:22 → H.ERHOLD 16:37 → H.MEDSURG1 17:43 → OBSVTOIN 07-10 13:50 → H.MEDSURG1 07-10 16:58
PROVIDERS: ADMIT Internal Medicine; ATTEND Internal Medicine
DX: A09 Infectious gastroenteritis and colitis, unspecified (principal); E11.65 Type 2 diabetes mellitus with hyperglycemia; E11.40 Type 2 diabetes mellitus with diabetic neuropathy, unspecified; M17.0 Bilateral primary osteoarthritis of knee; M43.17 Spondylolisthesis, lumbosacral region; I10 Essential (primary) hypertension; E78.00 Pure hypercholesterolemia, unspecified; K76.0 Fatty (change of) liver, not elsewhere classified; Z91.81 History of falling; Z87.311 Personal history of (healed) other pathological fracture; Z87.01 Personal history of pneumonia (recurrent)

== ENCOUNTER 2018-12-05 11:19 | Emergency (ER) | payer MEDICARE, OTHER ==
[2018-12-05 11:20] VITALS: BMI 26.0
[2018-12-05 12:48] LABS: SQUAMOUS EPITHIAL < 1 /hpf (0-5); URINE BACTERIA OCC (<OCC); URINE BILIRUBIN NEGATIVE (NEGATIVE); URINE BLOOD SMALL (NEGATIVE); URINE CLARITY CLOUDY (Clear); URINE GLUCOSE (UA) NEG (NEGATIVE); URINE LEUKOCYTE ESTERASE LARGE Leu/uL (Negative); URINE PROTEIN 30 mg/dL (NEGATIVE)
[2018-12-05 13:00] LABS: URINE COLOR YELLOW (YELLOW)
--- NOTE | 2018-12-05 13:02 | ED PDOC ---
HPI: Female Pain Time Seen by Provider: 12/05/18 11:53 Chief Complaint (Nursing): Female Genitourinary Chief Complaint (Provider): Dysuria History Per: Patient History/Exam Limitations: no limitations Onset/Duration Of Symptoms: Days (four to five) Current Symptoms Are (Timing): Still Present Severity: Mild Quality Of Discomfort: Burning Associated Symptoms: Urinary Symptoms (Pt presents to the ED complaining of several days of urinary symptoms of dysuria, frequency and urgency without hematuria or hesitation. Pt indicates there is mild suprapubic pain on palpation but denies symptoms of anorexia, loss of appetite or fever; pt is a type 2 diabetic). denies: Fever, Chills, Nausea, Vomiting, Diarrhea, Back Pain Past Medical History Reviewed: Historical Data, Nursing Documentation, Vital Signs Vital Signs: Last Vital Signs Temp 97.9 F 12/05/18 11:29 Pulse 92 H 12/05/18 11:29 Resp 19 12/05/18 11:29 BP 123/76 12/05/18 11:29 Pulse Ox 97 12/05/18 11:29 - Medical History PMH: Diabetes, HTN, Hypercholesterolemia, Pneumonia Denies: Chronic Kidney Disease - Surgical History Surgical History: Appendectomy, Cholecystectomy - Family History Family History: States: Unknown Family Hx - Home Medications Home Medications: Ambulatory Orders Medication Instructions Recorded Liraglutide [Victoza 3-Lew] 1.2 mg SC DAILY 04/25/18 Bimatoprost [Lumigan] 1 drop EACHEYE HS 07/08/18 Brimonidine Tartrate [Alphagan P 1 drop EACHEYE Q8 07/08/18 0.1 % Ophth] Ciprofloxacin [Cipro] 500 mg PO BID #14 tab 07/08/18 DULoxetine [Cymbalta] 20 mg PO DAILY 07/08/18 Dorzolamide 2%/Timolol 0.5% 1 drop EACHEYE Q12 07/08/18 [Cosopt 2%-0.5% Opht] Ergocalciferol (Vitamin D2) 50,000 unit PO QWK 07/08/18 [Vitamin D2] Furosemide [Lasix] 40 mg PO MWF 07/08/18 Glipizide [Glipizide Xl] 5 mg PO DAILY 07/08/18 Ibandronate Sodium [Boniva] 150 mg PO Q30D 07/08/18 Ibuprofen [Motrin Tab] 400 mg PO Q6 PRN #12 tab 07/08/18 Multivitamin [Multi-Vitamin Daily] 1 tab PO DAILY 07/08/18 Pioglitazone [Actos] 30 mg PO DAILY 07/08/18 Pregabalin [Lyrica] 50 mg PO Q12 07/08/18 Sucralfate [Carafate Tab] 1 gm PO TID 07/08/18 Telmisartan 20 mg PO DAILY 07/08/18 Zolpidem [Ambien] 5 mg PO HS 07/08/18 metroNIDAZOLE [Flagyl] 500 mg PO TID #21 tab 07/08/18 Cephalexin [Keflex] 1 cap PO QID #30 capsule 12/05/18 - Allergies Allergies/Adverse Reactions: Allergies Allergy/AdvReac Type Severity Reaction Status Date / Time No Known Allergies Allergy Verified 04/25/18 08:40 Review of Systems ROS Statement: Except As Marked, All Systems Reviewed And Found Negative Genitourinary Female: Positive for: Dysuria, Frequency, Pelvic Pain. Negative for: Hematuria Physical Exam - Reviewed Nursing Documentation Reviewed: Yes Vital Signs Reviewed: Yes - Physical Exam Appears: Positive for: Well, Non-toxic, No Acute Distress. Negative for: Uncomfortable Head Exam: Positive for: ATRAUMATIC, NORMAL INSPECTION Skin: Positive for: Normal Color, Warm, Dry. Negative for: Diaphoresis, Pallor, Rash Eye Exam: Positive for: Normal appearance. Negative for: Nystagmus, Periorbital swelling, Periorbital tenderness ENT: Positive for: Normal ENT Inspection Neck: Positive for: Normal, Painless ROM, Decreased ROM Cardiovascular/Chest: Positive for: Regular Rate, Rhythm Respiratory: Positive for: Normal Breath Sounds. Negative for: Crackles, Rales, Wheezing, Respiratory Distress Pulses-Carotid (L): 2+ Pulses-Carotid (R): 2+ Pulses-Radial (L): 2+ Pulses-Radial (R): 2+ Gastrointestinal/Abdominal: Positive for: Normal Exam, Soft. Negative for: Tenderness, Distended, Guarding, Rebound - ECG O2 Sat by Pulse Oximetry: 97 Medical Decision Making Medical Decision Making: I: UTI vs Cystitis P: UA UA results support finding of uncomplicated UTI; noteworthy is that the patient has only urinary symptoms. She will be discharged on Keflex QID with orders to follow up with her PMD, rtED if fever develops >100F Pt is stable for discharge Disposition - Clinical Impression Clinical Impression: Urinary tract infection - Patient ED Disposition Is Patient to be Admitted: No Counseled Patient/Family Regarding: Diagnosis - Disposition Referrals: Non [facility] Provider, [Primary Care Provider] - Disposition: Routine/Home Disposition Time: 13:08 Condition: STABLE Additional Instructions: Follow up with your PMD in 3-5 days Return to ED if pain continues or if fever >100F developes Prescriptions: Cephalexin [Keflex] 1 cap PO QID #30 capsule Instructions: Urinary Tract Infections in Adults, Urinary Tract Infection, Adult (DC) Forms: [employer] (Slovenian), [employer] (South Korean) Print Language: [id number]
[2018-12-05 13:21] VITALS: BP 133/70; PULSE 76; RESP 18; TEMP 97.8; O2SAT 100
== END 2018-12-05 13:15 | disposition home or self-care (01) ==
LOC: H.ER 11:19 → SUPCPDRO 11:19 → H.ER 13:15
DX: N39.0 Urinary tract infection, site not specified (principal); E11.9 Type 2 diabetes mellitus without complications; E78.00 Pure hypercholesterolemia, unspecified; I10 Essential (primary) hypertension; Z79.84 Long term (current) use of oral hypoglycemic drugs